=== PATIENT | female | born 1960 | race Caucasian/White ===

== ENCOUNTER → 2019-09-19 09:07 | Outpatient (CLI) | payer OTHER, SELFPAY ==
[2019-09-19 09:50] LABS: Erythrocyte Sedimentation Rate 28 mm/hr (0-30)
[2019-09-19 11:43] LABS: Alanine Aminotransferase 21 U/L (12-78); Albumin Level 3.6 gm/dL (3.4-5.0); Albumin/Globulin Ratio 1.1 (1.1-1.8); Alkaline Phosphatase 80 U/L (46-116); Anion Gap 16.3 mEq/L (5-15); Aspartate Amino Transferase 12 U/L (15-37); Bilirubin,Total 0.5 mg/dL (0.2-1.0); Blood Urea Nitrogen 14 mg/dL (7-18); C-Reactive Protein 0.8 mg/dL (0.0-0.9); Calcium 8.5 mg/dL (8.5-10.1); Carbon Dioxide 27 mmol/L (21.0-32.0); Chloride 103 mmol/L (98-107); Chol/HDL Ratio 5.7 (1-3.5); Cholesterol 290 mg/dL (140-200); Creatinine,Serum 0.88 mg/dL (0.55-1.02); Estimated Glomerular Filt Rate 66 ml/min (>60); GFR (African American) 80 ML/MIN (>60); Globulin 3.3 gm/dl (1.3-3.2); Glucose 245 mg/dL (74-106); HDL Cholesterol 51 mg/dL (29-89); LDL Cholesterol 182 mg/dL (0-130); Potassium 4.3 mmoL/L (3.5-5.1); Sodium 142 mmol/L (136-145); Total Protein,Serum 6.9 gm/dL (6.4-8.2); Triglycerides 283 mg/dL (30-200); VLDL Cholesterol 57 mg/dL (0-40)
[2019-09-19 13:16] LABS: Hemoglobin A1C 9.5 % (0.0-7.0)
[2019-09-20 10:20] LABS: Vitamin B12 1075 pg/mL (232-1245); Vitamin D 25 Hydroxy 13.4 ng/mL (30.0-100.0)
== END ==
PROVIDERS: Visit Provider Nurse Practitioner Family
DX: E11.41 Type 2 diabetes mellitus with diabetic mononeuropathy (principal); M25.50 Pain in unspecified joint; E53.8 Deficiency of other specified B group vitamins; E55.9 Vitamin D deficiency, unspecified
CPT/HCPCS: 36415; 80053; 80061; 82607; 82652; 83036; 85651; 86140

== ENCOUNTER → 2021-07-25 17:52 | Outpatient (CLI) | payer OTHER, SELFPAY ==
[2021-07-25 20:02] LABS: Alanine Aminotransferase 28 U/L (12-78); Albumin Level 3.9 g/dl (3.5-5.0); Albumin/Globulin Ratio 1.4 (1.1-1.8); Alkaline Phosphatase 120 U/L (38-126); Anion Gap 12.2 mEq/L (5-15); Aspartate Amino Transferase 59 U/L (14-36); Bilirubin,Total 0.6 mg/dl (0.2-1.3); Blood Urea Nitrogen 12 mg/dl (7-17); Calcium 8.8 mg/dl (8.4-10.2); Carbon Dioxide 32 mmol/L (22.0-30.0); Chloride 94 mmol/L (98-107); Chol/HDL Ratio 3.6 (1-3.5); Cholesterol 197 mg/dl (140-200); Estimated Glomerular Filt Rate 86 ml/min (>60); GFR (African American) 104 ML/MIN (>60); Globulin 2.8 g/dL (1.3-3.2); HDL Cholesterol 55 mg/dl (40-60); Potassium 4.2 mmoL/L (3.5-5.1); Sodium 134 mmol/L (136-145); Total Protein,Serum 6.7 g/dl (6.3-8.2); Triglycerides 238 mg/dl (30-150); VLDL Cholesterol 48 mg/dL (0-40)
[2021-07-25 20:05] LABS: Hemoglobin A1C > 14.0 % (4.0-6.0)
[2021-07-25 20:12] LABS: Direct LDL Cholesterol 107.29 mg/dL (100-129); Glucose 526 mg/dl (74-100)
[2021-07-25 20:49] LABS: Vitamin B12 886 pg/mL (239-931)
== END ==
PROVIDERS: Visit Provider Internal Medicine Adolescent Medicine
DX: E11.65 Type 2 diabetes mellitus with hyperglycemia (principal); E11.41 Type 2 diabetes mellitus with diabetic mononeuropathy
CPT/HCPCS: 80053; 80061; 82607; 83036

== ENCOUNTER → 2022-05-08 12:15 | Outpatient (CLI) | payer OTHER, SELFPAY ==
--- NOTE | 2022-05-08 12:22 | XR_ITS ---
FINAL REPORT CLINICAL HISTORY: pain FINDINGS: 3 views of the left foot were obtained. There is no acute fracture or dislocation. There are mild and moderate degenerative changes. Calcaneal spurs are present. The soft tissues are unremarkable. IMPRESSION: Mild and moderate degenerative changes. Reviewed, Interpreted and Dictated by Mayur Watson III, MD Transcribed by Pedro Chavez Authenticated and [facility]
--- NOTE | 2022-05-08 12:22 | XR_ITS ---
FINAL REPORT CLINICAL HISTORY: pain FINDINGS: RIGHT FOOT: Three views of the right foot were obtained. There is no acute fracture or dislocation. There are mild and moderate degenerative changes. There is a 7 mm linear foreign body in the plantar midfoot of the anterior heel pad. IMPRESSION: Mild and moderate degenerative changes. Foreign body in the plantar anterior heel pad. Reviewed, Interpreted and Dictated by Mayur Watson III, MD Transcribed by Pedro Chavez Authenticated and [facility]
--- NOTE | 2022-05-08 12:22 | XR_ITS ---
FINAL REPORT CLINICAL HISTORY: pain FINDINGS: RIGHT ANKLE: Three views of the right ankle were obtained. There is no acute fracture or dislocation. There are moderate degenerative changes. There is a 7 mm linear foreign body in the anterior heel pad. Calcaneal spurs are present. IMPRESSION: Linear foreign body in the anterior heel pad. Moderate degenerative change. Reviewed, Interpreted and Dictated by Mayur Watson III, MD Transcribed by Pedro Chavez Authenticated and [facility]
--- NOTE | 2022-05-08 12:22 | XR_ITS ---
FINAL REPORT CLINICAL HISTORY: pain FINDINGS: LEFT ANKLE: Three views of the left ankle were obtained. There is no acute fracture or dislocation. There are mild and moderate degenerative changes. Calcaneal spurs are present. There is no soft tissue abnormality. IMPRESSION: Mild and moderate degenerative changes. Reviewed, Interpreted and Dictated by Mayur Watson III, MD Transcribed by Pedro Chavez Authenticated and [facility]
== END ==
PROVIDERS: PCP Internal Medicine Adolescent Medicine; Visit Provider Podiatrist
DX: M25.571 Pain in right ankle and joints of right foot (principal); M25.572 Pain in left ankle and joints of left foot; M79.671 Pain in right foot; M79.672 Pain in left foot; Z51.89 Encounter for other specified aftercare
CPT/HCPCS: 73610; 73630

== ENCOUNTER → 2022-06-02 10:12 | Outpatient (CLI) | payer OTHER, SELFPAY ==
--- NOTE | 2022-06-02 10:15 | US_ITS ---
FINAL REPORT CLINICAL HISTORY: previous smoker, bilateral claudication, bilateral rest pain, HTN, hyperlipidemia, DM, numbness bilateral legs. FINDINGS: COMPLETE ANKLE/BRACHIAL INDICES BILATERAL Ankle brachial indices were obtained. The right CARLEEN is 1.1. The left CARLEEN is 1.1. IMPRESSION: ABIs are within normal limits bilaterally. Reviewed, Interpreted and Dictated by Caleb Aguila MD Transcribed by Mimi Andrade Authenticated and [facility]
== END ==
PROVIDERS: PCP Internal Medicine Adolescent Medicine; Visit Provider Podiatrist
DX: L97.519 Non-pressure chronic ulcer of other part of right foot with unspecified severity (principal)
CPT/HCPCS: 93923

== ENCOUNTER → 2022-06-06 06:55 | Outpatient (CLI) | payer OTHER, SELFPAY ==
--- NOTE | 2022-06-06 | CA_ITS ---
APPROVED REPORT Exam: Pharmacologic Technologist: Yulia Amaya Ht: 5 ft 2 in Wt: 193 lbs BSA: 1.88 m2 HR: 83 bpm BP: 150/87 mmHg Indications: Chest pain, Weakness Medical History Medications: Lisinopril,,,,, Gabapentin,,,,, Atorvastatin,,,,, DulOXETINE,,,,, LanTUS,,,,, NovOLOG,,,,, Sertraline,,,,, SeMaglutide,,,,, Stress Test Details Test: LEXISCAN HR Resting HR: 84 bpm Max Heart Rate (APMHR): 161.069121 bpm Max HR Achieved: 94 bpm Target HR (85% APMHR): 136.859189 bpm % of APMHR: 58.39 Recovery HR: 85 bpm BP Resting BP: 150.0/87.0 mmHg Max BP: 150.0/87.0 mmHg Recovery BP: 146.0/83.0 mmHg ECG Resting ECG: Normal sinus rhythm, low voltage QRS, cannot rule out old anteroseptal WA. Clinical Exercise duration: 04:00 min Highest Stage Achieved: Exercise capacity: 1.0 METs Stress ECG Conclusion Symptoms: Brief shortness of air and stomach tightness. No chest pain. Arrhythmias/Ectopy: Rare PAC and PVC. ST-T Changes: No significant changes. Conclusion: Unremarkable Lexiscan stress. Myoview images reported separately. Electronically signed by : Gabo Miner MD 06/07/2022 08:53:37
--- NOTE | 2022-06-06 07:00 | NM_ITS ---
APPROVED REPORT Exam: Nuclear Stress Test Indication: Chest pain, SOB, Fatigue, HTN, DM, High cholesterol, Family history Patient Location: Outpatient Stress Tech: Yulia Amaya [place] Tech:Dali Watt, ARRT, RT (R)(N) Ht: 5 ft 2 in Wt: 193 lbs Bra Size: C HR: 84 bpm BP: 150/87 mmHg BSA: 1.88 m2 TID: 1.38 BMI: 35.2 History: Chest pain, SOB, Fatigue, HTN, DM, High cholesterol, Family history Procedure: Patient received a 0.4 mg of intravenous Lexiscan, resting heart rate 94 bpm, resting blood pressure 150/87 mmHg, with Lexiscan maximum heart rate achived was 94 bpm which is Less than 85 % of the maximum predicted heart rate and blood pressure was 150/87 mmHg. With Lexiscan, patient denied any complaint of chest pain. Electrocardiogram Resting electrocardiogram shows sinus rhythm, with Lexiscan there is less than 1.[address] segment depression noted from the baseline EKG. The EKG portion of the Lexiscan is nondiagnostic. Cardiac Stress and Resting SPECT Images: Cardiac Stress and Resting SPECT images were obtained using technetium 99m Myoview 31.2 mCi stress and 9.79 mCi at rest. Gated SPECT for analysis of segmental wall motion and calculation of the ejection fraction also done. Prone images were also obtained. Cardiac stress and rest SPECT images show a large area of reversible ischemia involving the anterior, anterior apical and anteroseptal wall, there is transient ischemic dilatation of the left ventricle seen. Computer derived ejection fraction is 57% with no obvious regional wall motion abnormality, right ventricle is normal size and contractility. Conclusion: 1. The EKG portion of the Lexiscan is nondiagnostic. 2. Scintigraphic evidence of a large area of reversible ischemia involving the anterior, anterior apical apex and anteroseptal wall with transient ischemic dilatation of the left ventricle. Computer derived ejection fraction 57% with no regional wall motion abnormality, right ventricle is normal size and contractility. 3. Abnormal Lexiscan Myoview study. Electronically signed by : Gabo Miner MD 06/07/2022 09:01:01
--- NOTE | 2022-06-06 08:36 | HMH.ITSHM ---
Current Home Medications as stated by this patient Moira Nicholas or inside technical sales representative. []SERTRALINE SEMAGLUTIDE LISINOPRIL INSULIN GABAPENTIN DULOXETINE ATORVASTATIN
== END ==
PROVIDERS: PCP Internal Medicine Adolescent Medicine; Visit Provider Internal Medicine Adolescent Medicine
DX: R07.9 Chest pain, unspecified (principal); R53.1 Weakness
CPT/HCPCS: 78452; 93017; A9502; J2785

== ENCOUNTER → 2022-06-20 10:13 | Outpatient (CLI) | payer OTHER, SELFPAY ==
[2022-06-20 11:03] LABS: Basophils # 0.2 K/mm3 (0-0.2); Basophils % 1.7 % (0.1-2.0); Eosinophils # 0.3 K/mm3 (0.0-0.4); Eosinophils % 3.1 % (0.1-12.0); Hematocrit 42.4 % (37.0-47.0); Hemoglobin 13.8 g/dL (12.2-16.2); Lymphocytes # 3.5 K/mm3 (0.7-4.5); Lymphocytes % 39.7 % (10-50); Mean Corpuscular HGB Conc 32.5 g/dL (31.8-35.4); Mean Corpuscular Hemoglobin 29.7 pg (27.0-31.2); Mean Corpuscular Volume 91.3 fl (81-99); Mean Platelet Volume 8.5 fl (7.4-10.4); Monocytes # 0.5 K/mm3 (0.1-1.0); Monocytes % 5.2 % (1.7-9.3); Neutrophils # 4.4 K/mm3 (1.8-7.8); Neutrophils % 50.4 % (37.0-80.0); Platelet Count 177 K/mm3 (142-424); Red Blood Count 4.65 M/mm3 (4.20-5.40); Red Cell Distribution Width 13.7 % (11.5-17.5); White Blood Count 8.7 K/mm3 (4.8-10.8)
[2022-06-20 11:27] LABS: Anion Gap 15.1 mEq/L (5-15); Blood Urea Nitrogen 29 mg/dl (7-17); Calcium 9.1 mg/dl (8.4-10.2); Carbon Dioxide 31 mmol/L (22.0-30.0); Chloride 98 mmol/L (98-107); Estimated Glomerular Filt Rate 64 ml/min (>60); GFR (African American) 78 ML/MIN (>60); Glucose 219 mg/dl (74-100); Potassium 5.1 mmoL/L (3.5-5.1); Sodium 139 mmol/L (136-145)
== END ==
PROVIDERS: PCP Internal Medicine Adolescent Medicine; Visit Provider Internal Medicine Cardiovascular Disease
DX: R06.00 Dyspnea, unspecified (principal); Z01.812 Encounter for preprocedural laboratory examination; Z20.822 Contact with and (suspected) exposure to COVID-19; I20.8 Other forms of angina pectoris; I10 Essential (primary) hypertension; E11.9 Type 2 diabetes mellitus without complications; R94.39 Abnormal result of other cardiovascular function study; I63.9 Cerebral infarction, unspecified; Z78.9 Other specified health status
CPT/HCPCS: 36415; 80048; 85025; C9803; U0003; U0005

== ENCOUNTER 2022-06-21 08:35 | Day surgery (SDC) | payer OTHER, SELFPAY ==
[2022-06-21] VITALS (13 sets, daily range): BP systolic 88–106; BP diastolic 51–70; PULSE 65–75; RESP 18; TEMP 36.9; O2SAT 94–99; BMI 34.9
--- NOTE | 2022-06-21 07:03 | IR_ITS ---
APPROVED REPORT Patient Location: Outpatient Sawsmith: GAVIN Cordero RT (R) PROCEDURES Left heart catheterization Left ventriculogram Selective coronary angiogram INDICATION High risk abnormal Myoview, Angina pectoris Informed consent was obtained prior to the procedure. COMPLICATIONS NONE Estimated Blood Loss: LESS THAN 10 ML TECHNIQUE One percent lidocaine used to anesthetize the right anterior aspect of the wrist. The right radial artery was accessed via the Seldinger technique. A 6 Turkmen sheath was placed in the right radial artery. 2.5 mg of verapamil, 800 mcg of nitroglycerin, 1mg Lidocaine and 5000 U Heparin were given through the arterial sheath. The papa catheter was also used to perform left heart catheterization, left ventriculogram and selective coronary angiogram. At the end of the procedure the sheath was removed good hemostasis was achieved using Traclet band, patient was transferred to the postop holding area in stable condition. ANGIOGRAPHIC RESULTS The left main artery Normal The left anterior descending artery Ostially occluded and fills via left to left and right to left collaterals from the circumflex artery and right coronary artery The circumflex artery Is a large dominant vessel and has an ostial 30% followed by proximal 30% stenosis. Second obtuse marginal artery has a proximal 90% stenosis while the third obtuse marginal artery has a proximal and mid vessel 80% stenosis. Both second and third obtuse marginal arteries are moderate in size The right coronary artery Is nondominant and has proximal and mid vessel 90% stenoses. The distal vessel does collateralized the LAD via septal perforators The LUNDBERG ventriculogram reveals Preserved 60% The left ventricular end-diastolic pressure 25 mmHg IMPRESSION Severe to critical three-vessel coronary disease as described above most notably with a chronically occluded LAD which fills via left to left and right to left collaterals Preserved ejection fraction Moderately elevated LVEDP PLAN 1. Continue aspirin 81 mg daily 2. LDL goal less than 55 to be achieved with high intensity statin 3. Patient will be referred to [facility] for coronary bypass grafting 4. Aggressive risk factor modification Electronically signed by : Dion Urrutia MD 06/21/2022 13:50:48
--- NOTE | 2022-06-21 09:14 | CA_ITS ---
APPROVED REPORT EXAM: Comprehensive 2D, Doppler, and color-flow Echocardiogram Record Pressman: Thania García RT(R) Ht: 5 ft 2 in Wt: 190lbs BSA: 1.87 BP: 139/92 mmHg Indications: angina, CP, ex smoker, fatigue, edema, HTN, DM, SOB, obesity. 2D Dimensions LVOT 1.84 cm (M/F) 1.5-2.5 M-Mode Dimensions RVDd 1.57 cm (0.9-2.6) LA Diam 2.94 cm (1.9-4.0) LVDd 2.18 cm (3.5-5.7) Ao Diam 2.94 cm (2.0-3.7) LVDs 1.57 cm (3.5-5.7) IVSd 0.75 cm (0.6-1.1) PWd 0.93 cm (0.6-1.1) EF (Teich) 57.00% FS 28.00% EDV (Teich) 15.80 mL ESV (Teich) 6.80 mL LV Diastology E Decel Time 207.00 (160-240 msec) E/A Ratio 1.0 MED E' 5.70 (< 7 cm/sec) E'/MED E' Ratio 12.53 (>14) LAT E' 8.40 (<10 cm/sec) E/LAT E' Ratio 8.50 (>14) Mitral Valve MV E Max Jason. 71.00 (40-130 cm/s) MV A Velocity 73.00 (40-130 cm/s) E/A Ratio 0.98 MV Decel. Time 207.00 (160-240 ms) MV PHT 61.00 ms Left Ventricle Left atrium is mildly enlarged, left ventricle is normal size, mild concentric left ventricular hypertrophy, estimated ejection fraction 55% with no regional wall motion abnormality, diastolic parameters are inconclusive. Right Ventricle Right atrium and right ventricle are normal size and contractility. Aortic Valve Aortic valve is minimally thickened and fibrosed there is no aortic stenosis or aortic insufficiency. Mitral Valve Mitral valve grossly normal, there is trace mitral regurgitation. Tricuspid Valve Tricuspid grossly normal, there is trace tricuspid regurgitation, tricuspid regurgitation jet velocity is inadequate for calculation of the right ventricular systolic pressure. Pulmonic Valve Pulmonic valve is poorly visualized. Great Vessels Aortic root is normal size. Inferior vena cava is poorly visualized. Pericardium No significant pericardial effusion noted. Conclusion 1. Mildly enlarged atrium, normal left ventricular size, mild concentric left ventricular hypertrophy, estimated ejection fraction 55% with no regional wall motion abnormality, diastolic parameters are inconclusive. 2. Trace mitral and tricuspid regurgitation. 3. No significant pericardial effusion 4. Inferior vena cava is poorly visualized. Electronically signed by : Gabo Miner MD 06/21/2022 21:14:04
== END 2022-06-21 14:06 | disposition home or self-care (01) ==
LOC: CATHLAB 08:37
PROVIDERS: PCP Internal Medicine Adolescent Medicine; Visit Provider Internal Medicine
DX: I25.118 Atherosclerotic heart disease of native coronary artery with other forms of angina pectoris (principal); I25.82 Chronic total occlusion of coronary artery; E11.9 Type 2 diabetes mellitus without complications; I10 Essential (primary) hypertension; R06.00 Dyspnea, unspecified; Z79.4 Long term (current) use of insulin; Z87.891 Personal history of nicotine dependence; Z79.899 Other long term (current) drug therapy
CPT/HCPCS: 93306; 93458; 99152; C1725; C1769; J1644; Q9967

== ENCOUNTER → 2022-07-08 09:19 | Outpatient (CLI) | payer OTHER, SELFPAY | PROVIDERS: PCP Internal Medicine Adolescent Medicine; Visit Provider Thoracic Surgery (Cardiothoracic Vascular Surgery) | DX: Z20.822 Contact with and (suspected) exposure to COVID-19 (principal); I25.10 Atherosclerotic heart disease of native coronary artery without angina pectoris | CPT/HCPCS: C9803; U0003; U0005 ==

== ENCOUNTER → 2022-08-17 10:48 | Outpatient (CLI) | payer OTHER, SELFPAY ==
--- NOTE | 2022-08-17 11:02 | XR_ITS ---
FINAL REPORT CLINICAL HISTORY: LEFT SIDED CHEST WALL PAIN FINDINGS: 3 views of the left ribs were obtained. There are no rib fractures. There is no pleural fluid collection or pneumothorax. A single view of the chest demonstrates no acute cardiopulmonary process. There are multiple median sternotomy wires. IMPRESSION: Unremarkable left rib series. Reviewed, Interpreted and Dictated by Caleb Aguila MD Transcribed by Pedro Chavez Authenticated and [facility]
== END ==
PROVIDERS: PCP Nurse Practitioner Family; Visit Provider Nurse Practitioner Family
DX: R07.89 Other chest pain (principal)
CPT/HCPCS: 71101

== ENCOUNTER → 2022-10-09 12:54 | Outpatient (CLI) | payer OTHER, SELFPAY ==
--- NOTE | 2022-10-09 12:57 | CA_ITS ---
APPROVED REPORT EXAM: Comprehensive 2D, Doppler, and color-flow Echocardiogram Drug Clerk: Jadyn Roman, RCS, RVS Ht: 5 ft 2 in Wt: 181lbs BSA: 1.83 BP: 147/91 mmHg Indications: CAD S/p CBGx3-07/2022, exsmoker, HTN, DM 2D Dimensions IVSd 1.18 cm LA Volume 20.50 mL Aortic Root 2.84 cm LA Volume Index 10.90 mL/m2 (M/F) 16-34 Left Atrium 2.26 cm LVOT 1.87 cm (M/F) 1.5-2.5 M-Mode Dimensions RVDd 1.86 cm (0.9-2.6) LA Diam 2.61 cm (1.9-4.0) LVDd 3.50 cm (3.5-5.7) Ao Diam 2.91 cm (2.0-3.7) LVDs 2.25 cm (3.5-5.7) IVSd 1.29 cm (0.6-1.1) PWd 1.04 cm (0.6-1.1) EF (Teich) 66.40% FS 35.70% EDV (Teich) 50.90 mL TAPSE 0.94 (<1.7) ESV (Teich) 17.10 mL LV Diastology E Decel Time 133.00 (160-240 msec) E/A Ratio 0.78 MED E' 6.80 (< 7 cm/sec) MED A' 7.40 cm/s E'/MED E' Ratio 8.44 (>14) LAT E' 5.40 (<10 cm/sec) LAT A' 7.90 cm/s E/LAT E' Ratio 10.63 (>14) Aortic Valve LVOT Max 107.00 (70-110 cm/s) LVOT VTI 22.22 cm AoV Peak Jason. 127.00 (50-130 cm/s) AO Peak GR. 6.40 mmHg AO Mean GR. 3.20 (<5 mmHg) AO VTI 24.20 (18-25 cm) SANDRA (VTI) 2.52 (2.5-4.5 cm2) Mitral Valve MV A Velocity 73.00 (40-130 cm/s) E/A Ratio 0.78 MV Decel. Time 133.00 (160-240 ms) Pulmonary Valve PV Peak Velocity 93.00 (50-150 cm/s) Tricuspid Valve TR P. Velocity 236.00 cm/s RAP Estimate 10.00 mmHg RVSP 32.20 mmHg Left Ventricle Left atrium is mildly enlarged the left ventricle is normal size mild concentric left ventricular hypertrophy, estimated ejection fraction 55% with no regional wall motion abnormality, grade 1 diastolic dysfunction seen without tissue Doppler evidence of raise left atrial pressure. Right Ventricle Right atrium and right ventricle are normal size and contractility. Aortic Valve Aortic valve is minimally thickened and fibrosed there is no aortic stenosis or aortic insufficiency. Mitral Valve Mitral valve is grossly normal, there is trace mitral regurgitation. Tricuspid Valve Tricuspid valve grossly normal, there is trace tricuspid regurgitation, tricuspid regurgitation jet velocity is inadequate for calculation of the right ventricular systolic pressure. Pulmonic Valve Pulmonic valve is poorly visualized. Great Vessels Aortic root is normal size. Inferior vena cava is normal size with normal inspiratory collapse. Pericardium No significant pericardial effusion noted. Conclusion 1. Mildly enlarged left atrium, normal left ventricular size, mild concentric left ventricular hypertrophy, estimated ejection fraction 55% with no regional wall motion abnormality, grade 1 diastolic dysfunction seen without tissue Doppler evidence of raise left atrial pressure. 2. Trace mitral and tricuspid regurgitation. 3. No significant pericardial effusion noted. 4. Inferior vena cava is normal size with normal inspiratory collapse. Electronically signed by : Gabo Miner MD 10/10/2022 06:29:57
== END ==
PROVIDERS: PCP Nurse Practitioner Family; Visit Provider Nurse Practitioner Family
DX: I20.8 Other forms of angina pectoris (principal); I10 Essential (primary) hypertension; E11.9 Type 2 diabetes mellitus without complications; R94.31 Abnormal electrocardiogram [ECG] [EKG]; Z95.1 Presence of aortocoronary bypass graft; Z79.4 Long term (current) use of insulin
CPT/HCPCS: 93306

== ENCOUNTER 2023-02-26 11:47 | Emergency (ER) | payer OTHER, SELFPAY ==
[2023-02-26 12:10] VITALS: BP 102/70; PULSE 83; RESP 18; TEMP 36.8; O2SAT 97; BMI 32.4
--- NOTE | 2023-02-26 12:50 | EXP.UTC ---
Discharge Plan Disposition Patient Disposition: Home, Self-Care Condition: Good Prescriptions Prescriptions: New triamcinolone acetonide 0.5 % cream 1 applic topical TID Qty: 30 0RF Rx Instructions: apply to rash on chest and arm No Action gabapentin 800 mg tablet 800 mg PO QID duloxetine 60 mg capsule,delayed release(DR/EC) 60 mg PO DAILY Label Comments: TAKE 1 CAPSULE BY MOUTH ONCE DAILY atorvastatin 40 mg tablet 40 mg PO DAILY insulin glargine [Lantus Solostar U-100 Insulin] 100 unit/mL (3 mL) insulin pen 65 unit SQ HS Ozempic 0.25 mg or 0.5 mg(2 mg/1.5 mL) pen injector 1 mg SQ WEEKLY Label Comments: INJECT 1/2 (ONE-HALF) MG UNDER THE SKIN ONCE A WEEK FOR 30 DAYS insulin aspart U-100 [Novolog FlexPen U-100 Insulin] 100 unit/mL (3 mL) insulin pen 25 unit SQ TID Label Comments: INJECT 15 UNITS SUBCUTANEOUSLY WITH MEALS UP TO THREE TIMES DAILY sertraline 100 mg tablet 100 mg PO BID Ozempic 1 mg/dose (4 mg/3 mL) pen injector 1 mg SQ WEEKLY metoprolol tartrate 25 mg tablet 25 mg PO BID Label Comments: TAKE 1 TABLET BY MOUTH TWICE DAILY isosorbide mononitrate 30 mg tablet extended release 24 hr 30 mg PO DAILY Qty: 30 5RF methocarbamol 500 mg tablet See Rx Instructions .ROUTE .COMPLEX Qty: 60 0RF Dose Instruction: TAKE 1 TABLET BY MOUTH TWICE DAILY NEEDED FOR CHEST PAIN Rx Instructions: TAKE 1 TABLET BY MOUTH TWICE DAILY NEEDED FOR CHEST PAIN aspirin [Adult Aspirin Regimen] 81 mg tablet,delayed release (DR/EC) 81 mg PO DAILY Referrals Follow up/Referrals: Bernard Todd MD [Primary Care Provider] - See instructions Activity Restrictions/Add. Instructions Additional Instructions/Restrictions: Make sure to look around and see if the pillow you slept on was washed in the correct laundry detergent Follow up with your Family Doctor if no improvement or any worsening of symptoms Do not use steriod cream on your face Over the counter benadryl may help with itching Oatmeat bathes may help with itching and drying of rash Clinical Impressions Clinical Impression: Rash and nonspecific skin eruption Instructions Patient Instructions: DI for Hives, DI for Rash Discharge ED Provider: Marisa Shafer [facility] HPI General Stated complaint: Rash all over body Mode of Arrival: Ambulatory Source of Information: Patient Limitations: No Limitations Time Seen by Provider: 02/26/23 12:50 Description of Symptoms (Recalled from Triage Doc. by RN): PATIENT C/O RASH ALL OVER BODY X 1 WEEK HEENT Symptoms (Recalled from RN notes): No Resp Symptoms (Recalled from RN notes): No Skin Symptoms (Recalled from RN notes): Yes MS Symptoms (Recalled from RN notes): No Functional Status (Recalled from RN notes): WNL History of Present Illness Provider Complaint: Patient states that she has been having rash on the right side of her neck and chest area for about a week that is itchy States that she hasnt changed anything that she is aware of but has been sleeping with a new pillow not sure if thaty may have caused it states that she is a diabetic and has take OTC benadryl last night but not helped much so today she came in to get it checked Related Data Home Medications Medication Instructions Recorded Confirmed atorvastatin 40 mg tablet 40 mg PO DAILY . 05/09/22 02/26/23 duloxetine 60 mg capsule,delayed 60 mg PO DAILY . 05/09/22 02/26/23 release gabapentin 800 mg tablet 800 mg PO QID . 05/09/22 02/26/23 insulin aspart U-100 100 unit/mL 25 unit SQ TID . 06/09/22 02/26/23 (3 mL) subcutaneous pen (Novolog FlexPen U-100 Insulin aspart) insulin glargine 100 unit/mL (3 65 unit SQ HS . 06/09/22 02/26/23 mL) subcutaneous pen (Lantus Solostar U-100 Insulin) semaglutide 0.25 mg or 0.5 mg (2 1 mg SQ WEEKLY . 06/09/22 02/26/23 mg/1.5 mL) subcutaneous pen injector (Ozempic) aspirin 81 mg tablet,delay
[2023-02-26 13:00] VITALS: BP 118/82
[2023-02-26 13:15] VITALS: BP 118/82; PULSE 83; RESP 18; TEMP 36.8; O2SAT 97
== END 2023-02-26 13:28 | disposition home or self-care (01) ==
PROVIDERS: Emergency Provider Nurse Practitioner; PCP Internal Medicine Adolescent Medicine
DX: R21 Rash and other nonspecific skin eruption (principal); E11.9 Type 2 diabetes mellitus without complications; I10 Essential (primary) hypertension; E78.5 Hyperlipidemia, unspecified; Z79.4 Long term (current) use of insulin; Z87.891 Personal history of nicotine dependence
CPT/HCPCS: 96372; 99204; 99212; G0463

== ENCOUNTER 2023-03-29 18:13 | Emergency (ER) | payer OTHER, SELFPAY ==
--- NOTE | 2023-03-29 18:17 | XR_ITS ---
PROCEDURE INFORMATION: Exam: XR Right Foot Exam date and time: 03/29/2023 6:14 PM Age: 62 years old Clinical indication: Injury or trauma; Blunt trauma; Patient HX: foot pain due to fall, most of pain is in toes. Patient is a diabetic with neuropathy. States she falls frequently. TECHNIQUE: Imaging protocol: Radiologic exam of the right foot. Views: 3 or more views. COMPARISON: CR XR FOOT WT BEARING RT 3V 05/08/2022 12:31 PM FINDINGS: Bones/joints: Bones appear mildly demineralized. No acute appearing fracture or dislocation, compared with 05/08/2022. Chronic deformity/degenerative changes of the bases of 1st, 2nd, and 4th proximal phalanges. Chronic ovoid ossicle at the lateral margin of the 1st metatarsophalangeal joint. Chronic fractured sesamoid bone abutting the head of the 5th metatarsal bone, unchanged since the prior study. Accessory type 2 navicular ossicle. Minimal degenerative spurs of medial and lateral malleoli. Large plantar and Achilles calcaneal spurs. Mild degenerative spurs in the midfoot best seen on the lateral view. No lytic lesions or findings of osteomyelitis. Soft tissues: Soft tissue swelling in the foot. There is a chronic broken needle fragment or other metallic foreign body of 5 mm length lodged in the soft tissues at the plantar aspect of the midfoot, most clearly seen on oblique series 2, and lateral series 3, present since the prior exam. There is a triangular 4 cm density at the plantar/superficial aspect of the great toe seen on the lateral view, which could be foreign debris within or on the soft tissues, correlate clinically. No soft tissue emphysema. Chronic calcifications in the distal Achilles tendon insertion. IMPRESSION: 1. No acute fracture or dislocation. 2. Chronic degenerative and old posttraumatic changes as detailed above. 3. Chronic 5 mm broken needle fragment or other metallic foreign body in the plantar soft tissues at the midfoot. 4. 4 mm triangular density at the plantar aspect of the great toe which could be foreign debris within or on the soft tissues, correlate clinically, this is not clearly seen on the prior study. 5. Additional nonemergency and chronic findings as above.
--- NOTE | 2023-03-29 18:22 | EXP.UTC ---
Discharge Plan Disposition Patient Disposition: Home, Self-Care Condition: Good Prescriptions Prescriptions: New sulfamethoxazole-trimethoprim [Bactrim DS] 800-160 mg Tablet 1 tab PO BID Qty: 20 0RF cephalexin 500 mg capsule 500 mg PO QID Qty: 40 0RF mupirocin 2 % ointment 1 applic topical TID 7 Days Qty: 15 0RF No Action gabapentin 800 mg tablet 800 mg PO QID duloxetine 60 mg capsule,delayed release(DR/EC) 60 mg PO DAILY Label Comments: TAKE 1 CAPSULE BY MOUTH ONCE DAILY atorvastatin 40 mg tablet 40 mg PO DAILY insulin glargine [Lantus Solostar U-100 Insulin] 100 unit/mL (3 mL) insulin pen 65 unit SQ HS Ozempic 0.25 mg or 0.5 mg(2 mg/1.5 mL) pen injector 1 mg SQ WEEKLY Label Comments: INJECT 1/2 (ONE-HALF) MG UNDER THE SKIN ONCE A WEEK FOR 30 DAYS insulin aspart U-100 [Novolog FlexPen U-100 Insulin] 100 unit/mL (3 mL) insulin pen 25 unit SQ TID Label Comments: INJECT 15 UNITS SUBCUTANEOUSLY WITH MEALS UP TO THREE TIMES DAILY sertraline 100 mg tablet 100 mg PO BID Ozempic 1 mg/dose (4 mg/3 mL) pen injector 1 mg SQ WEEKLY metoprolol tartrate 25 mg tablet 25 mg PO BID Label Comments: TAKE 1 TABLET BY MOUTH TWICE DAILY isosorbide mononitrate 30 mg tablet extended release 24 hr 30 mg PO DAILY Qty: 30 5RF methocarbamol 500 mg tablet See Rx Instructions .ROUTE .COMPLEX Qty: 60 0RF Dose Instruction: TAKE 1 TABLET BY MOUTH TWICE DAILY NEEDED FOR CHEST PAIN Rx Instructions: TAKE 1 TABLET BY MOUTH TWICE DAILY NEEDED FOR CHEST PAIN triamcinolone acetonide 0.5 % cream 1 applic topical TID Qty: 30 0RF Rx Instructions: apply to rash on chest and arm aspirin [Adult Aspirin Regimen] 81 mg tablet,delayed release (DR/EC) 81 mg PO DAILY Referrals Follow up/Referrals: Bernard Todd MD [Primary Care Provider] - See instructions Activity Restrictions/Add. Instructions Additional Instructions/Restrictions: Keep the wound clean and dry. Watch the wound for signs of infection, such as redness, swelling, drainage, fever. etc. Take tylenol or ibuprofen for pain. Follow up with your regular doctor. YOU HAVE TO BE SEEN BY DR. BEE FOR THIS. THERE COULD STILL BE A FORIEGN BODY IN YOUR TOE. THIS NEEDS TO BE EVALUATED BY DR. BEE SOON. IF YOU HAVEN'T HEARD FROM DR. BEE'S OFFICE BY 12:00 PM TOMORROW, PLEASE CALL HERE OR THE [facility] TO GET AN APPOINTMENT. GO TO THE ER FOR ANY WORSENING SYMPTOMS OR CONCERNS. Clinical Impressions Clinical Impression: Cellulitis of foot, right, Diabetes, Wound of right foot Instructions Patient Instructions: Cellulitis Discharge ED Provider: Aries L[facility]pez [facility] General Stated complaint: AO fell 03/22,RT foot pain Time Seen by Provider: 03/29/23 18:21 History of Present Illness Provider Complaint: She states that 7 days ago she fell down her basement steps. Since the she has had right foot pain and redness. She is a known diabetic. Related Data Home Medications Medication Instructions Recorded Confirmed atorvastatin 40 mg tablet 40 mg PO DAILY . 05/09/22 02/26/23 duloxetine 60 mg capsule,delayed 60 mg PO DAILY . 05/09/22 02/26/23 release gabapentin 800 mg tablet 800 mg PO QID . 05/09/22 02/26/23 insulin aspart U-100 100 unit/mL 25 unit SQ TID . 06/09/22 02/26/23 (3 mL) subcutaneous pen (Novolog FlexPen U-100 Insulin aspart) insulin glargine 100 unit/mL (3 65 unit SQ HS . 06/09/22 02/26/23 mL) subcutaneous pen (Lantus Solostar U-100 Insulin) semaglutide 0.25 mg or 0.5 mg (2 1 mg SQ WEEKLY . 06/09/22 02/26/23 mg/1.5 mL) subcutaneous pen injector (Ozempic) aspirin 81 mg tablet,delayed 81 mg PO DAILY . 06/21/22 02/26/23 release (Adult Aspirin Regimen) metoprolol tartrate 25 mg tablet 25 mg PO BID 08/17/22 02/26/23 sertraline 100 mg tablet 100 mg PO BID . 11/20/22 02/26/23 semaglutide 1 m
[2023-03-29 18:25] VITALS: BP 175/87; PULSE 83; RESP 18; TEMP 36.6; O2SAT 99; BMI 32.5
[2023-03-29 19:17] VITALS: BP 175/87; PULSE 83; RESP 18; TEMP 36.6; O2SAT 99
== END 2023-03-29 19:40 | disposition home or self-care (01) ==
PROVIDERS: Emergency Provider Nurse Practitioner Family; PCP Internal Medicine Adolescent Medicine
DX: S91.301A Unspecified open wound, right foot, initial encounter (principal); L03.115 Cellulitis of right lower limb; B96.89 Other specified bacterial agents as the cause of diseases classified elsewhere; E11.9 Type 2 diabetes mellitus without complications; I11.9 Hypertensive heart disease without heart failure; I25.10 Atherosclerotic heart disease of native coronary artery without angina pectoris; E78.5 Hyperlipidemia, unspecified; F41.9 Anxiety disorder, unspecified; Z87.891 Personal history of nicotine dependence; W10.8XXA Fall (on) (from) other stairs and steps, initial encounter; Z79.4 Long term (current) use of insulin
CPT/HCPCS: 73630; 87070; 87077; 87205; 96372; 99212; 99214; G0463; J0696

== ENCOUNTER → 2023-06-29 10:56 | Outpatient (CLI) | payer OTHER, SELFPAY ==
[2023-06-29 11:58] LABS: Basophils # 0.1 K/mm3 (0-0.2); Basophils % 0.8 % (0.1-2.0); Eosinophils # 0.2 K/mm3 (0.0-0.4); Eosinophils % 2.3 % (0.1-12.0); Hemoglobin 13.3 g/dL (12.2-16.2); Lymphocytes # 3.1 K/mm3 (0.7-4.5); Lymphocytes % 42.2 % (10-50); Mean Corpuscular HGB Conc 32.5 g/dL (31.8-35.4); Mean Corpuscular Hemoglobin 27.6 pg (27.0-31.2); Mean Platelet Volume 8.2 fl (7.4-10.4); Monocytes # 0.2 K/mm3 (0.1-1.0); Monocytes % 3.3 % (1.7-9.3); Neutrophils # 3.8 K/mm3 (1.8-7.8); Neutrophils % 51.4 % (37.0-80.0); Platelet Count 161 K/mm3 (142-424); Red Blood Count 4.82 M/mm3 (4.20-5.40); White Blood Count 7.3 K/mm3 (4.8-10.8)
[2023-06-29 12:50] LABS: Alanine Aminotransferase 37 U/L (12-78); Albumin Level 4.2 g/dl (3.5-5.0); Albumin/Globulin Ratio 1.2 (1.1-1.8); Alkaline Phosphatase 107 U/L (38-126); Aspartate Amino Transferase 52 U/L (14-36); Bilirubin,Total 0.5 mg/dl (0.2-1.3); Blood Urea Nitrogen 17 mg/dl (7-17); Calcium 9.4 mg/dl (8.4-10.2); Carbon Dioxide 31 mmol/L (22.0-30.0); Chloride 99 mmol/L (98-107); Chol/HDL Ratio 6.9 (1-3.5); Cholesterol 290 mg/dl (140-200); Estimated Glomerular Filt Rate 73 ml/min (>60); GFR (African American) 89 ML/MIN (>60); Globulin 3.4 g/dL (1.3-3.2); Glucose 157 mg/dl (74-100); HDL Cholesterol 42 mg/dl (40-60); Sodium 139 mmol/L (136-145); Total Protein,Serum 7.6 g/dl (6.3-8.2)
[2023-06-29 13:04] LABS: Triglycerides 416 mg/dl (30-150)
[2023-06-29 13:07] LABS: 25-OH Vitamin D, Total 17.7 ng/mL (30-100)
[2023-06-29 13:20] LABS: Thyroid Stimulating Hormone 1.27 uIU/mL (0.465-4.68)
[2023-06-29 13:39] LABS: Vitamin B12 752 pg/mL (239-931)
[2023-06-30 11:40] LABS: Hemoglobin A1C 8.1 % (4.0-6.0)
== END ==
PROVIDERS: Internal Medicine Adolescent Medicine; PCP Nurse Practitioner Family; Visit Provider Nurse Practitioner Family
DX: Z00.00 Encounter for general adult medical examination without abnormal findings (principal); R53.83 Other fatigue; E53.8 Deficiency of other specified B group vitamins; E55.9 Vitamin D deficiency, unspecified; E11.65 Type 2 diabetes mellitus with hyperglycemia; Z79.4 Long term (current) use of insulin
CPT/HCPCS: 36415; 80053; 80061; 82306; 82607; 83036; 84443; 85025

== ENCOUNTER 2024-08-19 14:08 | Outpatient (CLI) | payer MEDICARE, SELFPAY ==
--- NOTE | 2024-08-19 14:20 | CA_ITS ---
APPROVED REPORT EXAM: Comprehensive 2D, Doppler, and color-flow Echocardiogram Skein Winder: Thania García RT(R) Ht: 5 ft 2 in Wt: 167lbs BSA: 1.77 BP: 119/77 mmHg Indications: murmur, edema, ex smoker, HTN, DM, hyperlipidemia, CABG x 3 2021, Abn EKG, hyperlipidemia 2D Dimensions LVEF (Boogie's) 65.50 % F: 54 - 74 LV Volume 59.20 mL F: 46 - 106 LV Volume Index 33.4 mL/m2 F: 29 - 61 EF AP4 68.20 % EF AP2 57.1 % EF BP 65.5 % GL Strain -21.6 % M-Mode Dimensions RVDd 2.54 cm (0.9-2.6) LA Diam 2.94 cm (1.9-4.0) LVDd 2.22 cm (3.5-5.7) LVDs 1.50 cm (3.5-5.7) IVSd 0.97 cm (0.6-1.1) PWd 1.00 cm (0.6-1.1) EF (Teich) 63.30% FS 32.40% EDV (Teich) 16.60 mL ESV (Teich) 6.10 mL LV Diastology E Decel Time 150 (160-240 msec) E/A Ratio 0.9 Mitral Valve MV E Max Jason. 88.0 (40-130 cm/s) MV A Velocity 96.0 (40-130 cm/s) E/A Ratio 0.92 MV PHT 44.0 ms Left Ventricle The left ventricle is normal size. The left ventricular systolic function is hyperdynamic. There is marked increase in LV wall thickness. IVSD is 1.4 cm. Intracavitary gradient is present. There is no evidence of LVOT obstruction at rest. There is hyperdynamic LV segmental wall motion. Transmitral Doppler flow pattern suggests impaired LV relaxation. LVEF is 70%. Right Ventricle The right ventricle is normal size. The right ventricular systolic function is normal. Atria The left atrium size is normal. The right atrium size is normal. There is no Doppler evidence of interatrial shunt. Aortic Valve The aortic valve is mildly thickened. There is no aortic valvular stenosis. No aortic regurgitation is present. Mitral Valve The mitral valve is normal in structure. No evidence of mitral valve stenosis. Trace mitral regurgitation. Tricuspid Valve Tricuspid valve is grossly normal in structure and function. Trace tricuspid regurgitation. There is insufficient TR jet to estimate RVSP. Pulmonic Valve The pulmonary valve is normal in structure. Trace pulmonic regurgitation. Great Vessels The aortic root is normal in size. The ascending aorta is normal in size. IVC is normal in size and collapses >50% with inspiration. Pericardium There is no pericardial effusion. Other Information Study Quality: Fair Conclusion Hyperdynamic LV systolic function (LVEF 70%). Marked increase in LV wall thickness. IVSD 1.4 cm. Intracavitary gradient is present. No evidence of LVOT obstruction at rest. No significant valvular stenosis or regurgitation. In the setting of marked increase of wall thickness, presence of intracavitary gradient, and low voltage on ECG, further evaluation for infiltrative cardiomyopathy is suggested with cardiac MRI (amyloidosis protocol), PYP nuclear scan, and amyloidosis lab testing. Electronically signed by : Tiara Bustos MD 08/22/2024 00:06:42
== END 2024-08-19 23:59 | disposition home or self-care (01) ==
LOC: RT 14:09
PROVIDERS: PCP Internal Medicine Adolescent Medicine; Visit Provider Nurse Practitioner
DX: I42.8 Other cardiomyopathies (principal); I11.9 Hypertensive heart disease without heart failure; I25.10 Atherosclerotic heart disease of native coronary artery without angina pectoris; Z95.1 Presence of aortocoronary bypass graft
CPT/HCPCS: 93306

== ENCOUNTER 2024-09-02 10:57 | Outpatient (CLI) | payer MEDICARE, SELFPAY ==
[2024-09-02 11:37] LABS: Basophils # 0.1 K/mm3 (0-0.2); Basophils % 1.2 % (0.1-2.0); Eosinophils # 0.3 K/mm3 (0.0-0.4); Eosinophils % 3.7 % (0.1-12.0); Hematocrit 39.5 % (37.0-47.0); Hemoglobin 13.6 g/dL (12.2-16.2); Lymphocytes # 2.7 K/mm3 (0.7-4.5); Mean Corpuscular HGB Conc 34.5 g/dL (31.8-35.4); Mean Corpuscular Hemoglobin 29.5 pg (27.0-31.2); Mean Corpuscular Volume 85.5 fl (81-99); Mean Platelet Volume 7.7 fl (7.4-10.4); Monocytes # 0.5 K/mm3 (0.1-1.0); Monocytes % 6.4 % (1.7-9.3); Neutrophils # 3.6 K/mm3 (1.8-7.8); Neutrophils % 50.6 % (37.0-80.0); Platelet Count 168 K/mm3 (142-424); Red Blood Count 4.62 M/mm3 (4.20-5.40); Red Cell Distribution Width 13.6 % (11.5-17.5); White Blood Count 7.2 K/mm3 (4.8-10.8)
[2024-09-02 12:05] LABS: Alanine Aminotransferase 34 U/L (12-78); Albumin Level 4.3 g/dl (3.5-5.0); Alkaline Phosphatase 85 U/L (38-126); Anion Gap 10.4 mEq/L (5-15); Aspartate Amino Transferase 43 U/L (14-36); Bilirubin,Direct 0.4 mg/dl (0.0-0.4); Bilirubin,Indirect 0.3 mg/dL (0.0-0.9); Bilirubin,Total 0.7 mg/dl (0.2-1.3); Bilirubin,Unconjugated 0.3 mg/dL (0.0-1.1); Blood Urea Nitrogen 19 mg/dl (7-17); Calcium 9.2 mg/dl (8.4-10.2); Carbon Dioxide 30 mmol/L (22.0-30.0); Chloride 106 mmol/L (98-107); Chol/HDL Ratio 2.5 (1-3.5); Cholesterol 166 mg/dl (140-200); Estimated Glomerular Filt Rate 73 ml/min (>60); GFR (African American) 88 ML/MIN (>60); Glucose 138 mg/dl (74-100); HDL Cholesterol 66 mg/dl (40-60); Magnesium 1.9 mg/dl (1.6-2.3); Potassium 4.4 mmoL/L (3.5-5.1); Sodium 142 mmol/L (136-145); Total Protein,Serum 6.9 g/dl (6.3-8.2); Triglycerides 111 mg/dl (30-150); VLDL Cholesterol 22 mg/dL (0-40)
[2024-09-02 12:16] LABS: Direct LDL Cholesterol 84.66 mg/dL (100-129)
[2024-09-02 12:18] LABS: Free T4 (Free Thyroxine) 0.98 ng/dl (0.78-2.19)
[2024-09-02 12:36] LABS: Thyroid Stimulating Hormone 1.58 uIU/mL (0.465-4.68)
[2024-09-03 16:19] LABS: Albumin 3.5 g/dL (2.9-4.4); Alpha-1-Globulin 0.2 g/dL (0.0-0.4); Alpha-2-Globulin 0.9 g/dL (0.4-1.0); Free Lambda Lt Chains 24.7 mg/L (5.7-26.3); Protein, Total 6.9 g/dL (6.0-8.5)
[2024-09-05 15:09] LABS: Immunoglobulin A, Qn 342 mg/dL (87-352); Immunoglobulin G, Qn 960 mg/dL (586-1602); Immunoglobulin M, Qn 187 mg/dL (26-217)
[2024-09-05 16:11] LABS: Albumin, U 48.2 % (.); Alpha-1-Globulin, U 1.3 % (.); Alpha-2-Globulin, U 13.9 % (.); Beta Globulin, U 25.6 % (.); M-Spike, % Not Observed % (Not Observed); Protein,Total,Urine 17.8 mg/dL (Not Estab.)
[2024-09-06 08:53] LABS: PDF SCANNED IMAGE
[2024-09-06 08:57] LABS: PDF: SCANNED IMAGE
== END 2024-09-02 23:59 | disposition home or self-care (01) ==
LOC: LAB 10:58
PROVIDERS: PCP Internal Medicine Adolescent Medicine; Visit Provider Nurse Practitioner
DX: E78.2 Mixed hyperlipidemia (principal); E85.9 Amyloidosis, unspecified; R93.1 Abnormal findings on diagnostic imaging of heart and coronary circulation; R01.1 Cardiac murmur, unspecified; Z95.1 Presence of aortocoronary bypass graft; I25.10 Atherosclerotic heart disease of native coronary artery without angina pectoris; R94.31 Abnormal electrocardiogram [ECG] [EKG]; Z78.9 Other specified health status; I10 Essential (primary) hypertension; R06.00 Dyspnea, unspecified; E11.9 Type 2 diabetes mellitus without complications; Z79.4 Long term (current) use of insulin
CPT/HCPCS: 36415; 80048; 80061; 80076; 82784; 83735; 83883; 84155; 84156; 84165; 84166; 84439; 84443; 85025; 86334; 86335

== ENCOUNTER 2025-07-30 14:28 | Outpatient (CLI) | payer MEDICARE, SELFPAY ==
--- NOTE | 2025-07-30 14:30 | MM_ITS ---
PROCEDURE INFORMATION: Exam: MG Bilateral Screening 3D Mammography Exam date and time: 07/30/2025 2:44 PM Age: 65 years old Clinical indication: Screening examination. TECHNIQUE: Imaging protocol: Bilateral Screening tomosynthesis and 2D mammography including computer-aided detection (CAD) when performed. COMPARISON: No relevant prior studies available. FINDINGS: MAMMOGRAPHY: Breast composition: There are scattered areas of fibroglandular density. Mass: None. Architectural distortion: None. Calcifications: No suspicious calcifications. Asymmetric density: None. Skin thickening: None. Axillary adenopathy: None. IMPRESSION: No mammographic evidence of malignancy. Annual screening is recommended unless otherwise clinically indicated. ASSESSMENT: BI-RADS Category 1: Negative.
--- NOTE | 2025-07-30 14:30 | CT_ITS ---
FINAL REPORT CLINICAL HISTORY: SCREENING.FORMER SMOKER. QUIT 5 YEARS AGO. 1PPD FOR 40 YEARS. COMPARISON: None FINDINGS: CT CHEST LOW DOSE SCREENING HISTORY: Screening exam for lung cancer. 65-year-old female, former smoker who quit 5 years ago, 38-sowa-mmxt history. DOSE: CTDI vol: 2.90 mGy, DLP: 102.38 mGy*cm TECHNIQUE: Axial CT without IV contrast administration using low dose protocol. This study was performed with techniques to keep radiation doses as low as reasonably achievable, (ALARA). Individualized dose reduction techniques using automated exposure control or adjustment of mA and/or kV according to the patient's size were employed. No acute lung disease is present. No pulmonary lesions are seen suspicious for neoplasm. There is evidence of prior granulomatous disease. No pleural or pericardial effusion is seen. No adenopathy or mass lesion is present. The patient has undergone a prior CABG. IMPRESSION: No suspicious nodules identified. LUNG RADS CATEGORY 1 RECOMMENDATION: 12 month LDCT follow up Reviewed, Interpreted and Dictated by Ricardo Houston MD Transcribed by Debby Rivas Authenticated and [facility]
--- OUTSIDE RECORDS SUMMARY | 2025-07-30 15:02 | XMS_ITS | Clinical Summary ---
Author Organization [facility] Address [address] [place] [address] Phone Care Team Providers Care Procurement Inspector Name Role Phone Maximilian MANN, Christian Lockett [ ] Conditions or Problems Problem Name Problem Code Onset Date Status Entry Date Provider Comment Standard Description Annotate Other obesity due to excess calories 538830885 (SNOMED CT) 06/15 Active 06/15 Marlen Zavala Simple obesity Cellulitis, great toe, right 43199414 (SNOMED CT) 06/04 Resolved 06/04 Triny Julien Cellulitis of toe Acute osteomyeliti s, right foot/toe M86.171 (ICD-10-CM ) 06/06 Active 06/06 Triny Julien Other acute osteomyelitis, right ankle and foot Cellulitis, foot, right 492227647 (SNOMED CT) 06/06 Active 06/06 Triny Julien Cellulitis of foot Coronary artery disease, S/P CABG 373116650 (SNOMED CT) 06/06 Active 06/06 Triny Julien Arteriosclerosis of coronary artery bypass graft DM II with diabetic polyneuropat hy E11.42 (ICD-10-CM ) 06/06 Active 06/06 Triny Julien Type 2 diabetes mellitus with diabetic polyneuropathy Benign Essential Hypertension 56444404 (SNOMED CT) 06/06 Active 06/06 Triny Julien Benign hypertension Cellulitis, great toe, right 96135084 (SNOMED CT) 06/04 Removed 06/04 Fay Calabrese RN Cellulitis of toe Medications Medication Instructions Start Date Stop Date Generic Name NDC Provider MEROPENEM 1 GM SOLR Merrem 1G IV [id number] L OP ONC/LABS W/ APPTS meropenem [id number] Marleniedwardo Vivarn MEROPENEM 1 GM SOLR Merrem 1G IV [id number]/BH L OP ONC/LABS W/ APPTS meropenem [id number] Clementina Santiago RN MYCAMINE 100 MG SOLR 100mg IV Q24hrs/ [facility] micafungin [id number] Clementina Santiago RN MEROPENEM 1 GM SOLR 1gm IV Q8hrs/ [facility] meropenem [id number] Marlen Zavala TRIAMCINOLONE ACETONIDE 0.5 % CREA 3 (three) times daily Apply as directed. triamcinolone acetonide [id number] QIE qieuser SERTRALINE HCL 100 MG TABS Take 2 tablets (200 mg total) by mouth daily. sertraline [id number] QIE qieuser SACCHAROMYCES BOULARDII 250 MG CAPS Take 1 capsule (250 mg total) by mouth 2 (two) times daily for 30 days. saccharomyces boulardii [id number] QIE qieuser OZEMPIC (1 MG/DOSE) 4 MG/3ML SOPN Inject 1 mg subcutaneously once a week. semaglutide [id number] QIE qieuser MUPIROCIN 2 % OINT Apply topically 3 (three) times daily. mupirocin [id number] QIE qieuser METOPROLOL TARTRATE 25 MG TABS Take 1 tablet (25 mg total) by mouth daily. metoprolol tartrate [id number] QIE qieuser meropenem Inject 1 g intravenously every 8 (eight) hours for 14 days. 2023/08/ 22 2023/09 /05 MERREM QIE qieuser Levemir FlexPen 100 unit/mL (3 mL) insulin pen Inject 0.7 mLs (70 Units total) subcutaneously nightly. insulin detemir u-100 [id number] QIE qieuser ISOSORBIDE MONONITRATE ER 30 MG [id number] Take 1 tablet (30 mg total) by mouth daily. isosorbide mononitrate [id number] QIE qieuser insulin aspart U-100 3 (three) times daily before meals Sliding Scale. Use as directed. NovoLOG QIE qieuser GABAPENTIN 800 MG TABS Take 1 tablet (800 mg total) by mouth 4 (four) times daily. Max Daily Amount: 3,200 mg gabapentin [id number] QIE qieuser DULOXETINE HCL 60 MG CPEP Take 1 capsule (60 mg total) by mouth daily. duloxetine [id number] QIE qieuser ATORVASTATIN CALCIUM 80 MG TABS Take 1 tablet (80 mg total) by mouth daily. atorvastatin [id number] QIE qieuser GOODSENSE ASPIRIN 81 MG CHEW Take 1 tablet (81 mg total) by mouth daily. aspirin [id number] QIE qieuser ACETAMINOPHEN 325 MG TABS Take 2 tablets (650 mg total) by mouth every 6 (six) hours if needed for Pain. acetaminophen [id number] QIE qieuser MEROPENEM 1 GM SOLR 1gm IV Q8hrs/ [facility] meropenem [id number] Fay Calabrese RN MYCAMINE 100 MG SOLR 100mg IV Q24hrs/ [facility] micafungin [id number] Fay Calabrese RN Medications Administered No information available. Allergies, Adverse Reactions, Alerts Allergy Name Reaction Description Start Date Severity Statu s Provider LATEX TAPE Moderate Active Christian Yao MD Results Date Name Value Unit Range Flag Description Office Visit: Office Visit:1 3 MEDS REVIEW Done Documenta tion of current medications (procedure) ORALTOBACUSE Never Tobacco smoking status SMOK STATUS Never smoker Tobacco smoking status Lab Report: CBC WITH AUTO DI FFERENTIAL ZZ-GE-[id number] 0.0 /100 WBC 0.0-0.2 GE use only - fo r LinkLogic import when terms are not otherwise specified IMMATUREGRAN 0.02 10*3/MM3 0.00-0.05 Immature granulocytes [#/volume] in Blood BASO# 0.02 10*3/mm3 0.00-0.20 Basophils [#/vol ume] in Blood EOS ABSLT 0.15 10*3/uL 0.00-0.40 Eosinophi ls [#/volume] in Blood MONOSCT AUTO 0.37 10*3/uL 0.10-0.90 Monocy wong [#/volume] in Blood by Automated count LYMPHCT AUTO 2.88 10*3/mm3 0.70-3.10 Lymph ocytes [#/volume] in Blood by Automated count ABS NEUTROPH 3.09 10*3/uL 1.70-7.00 Neutro phils [#/volume] in Blood IMM GRANU % 0.3 % 0.0-0.5 Immature granulocytes/100 leukocytes in Blood % EOS AUTO 2.3 % 0.3-6.2 Eosinophil s/100 leukocytes in Blood by Automated count MONOCYTE % 5.7 % 5.0-12.0 Monocytes /100 leukocytes in Blood by Automated count LYMPHOCY BF 44.1 % 19.6-45.3 lymphoc ytes as percent of body fluid leukocytes NEUTROP BF 47.3 % 42.7-76.0 Neutroph ils/100 leukocytes in Body fluid PLATELETS 175 10*3/mm3 140-450 Platelets [#/volume] in Blood by Automated count RDW_ 13.2 12.3-15.4 RDW, no uni ts MCHC 32.4 G/DL 31.5-35.7 MCHC [Mass/ volume] by Automated count MCH 27.3 pg 26.6-33.0 MCH [Entiti c mass] by Automated count MCV 84.2 fL 79.0-97.0 MCV [Entiti c volume] by Automated count HCT 44.1 % 34.0-46.6 Hematocrit [Volume Fraction] of Blood by Automated count HGB 14.3 g/dL 12.0-15.9 Hemoglobin [Mass/volume] in Blood RBC 5.24 10*6/mm3 3.77-5.28 Erythrocyt es [#/volume] in Blood by Automated count WBC 6.53 10*3/mm3 3.40-10.8 0 Leukocytes [#/volume] in Blood by Automated count Lab Report: C-REACTIVE PROTE IN CRP <0.30 mg/dL 0.00-0.50 C reactive protein [Mass/volume] in Serum or Plasma Lab Report: COMPREHENSIVE ME TABOLIC PANEL ANIONGAP 9.0 mmol/L 5.0-15.0 anion gap, serum BUN/CREAT 22.9 7.0-25.0 Urea nitrogen/Creatinine [Mass Ratio] in Serum or Plasma BILI TOTAL 0.5 mg/dL 0.0-1.2 Bilirubin. total [Mass/volume] in Serum or Plasma ALK PHOS 131 U/L 39-117 H Alkaline kaila sphatase [Enzymatic activity/volume] in Blood SGOT (AST) 54 U/L 1-32 H Aspartate aminotransferase [Enzymatic activity/volume] in Serum or Plasma SGPT (ALT) 44 U/L 1-33 H Alanine aminotransferase [Enzymatic activity/volume] in Serum or Plasma ALBUMIN 4.0 g/dL 3.5-5.2 Albumin [Mass/volume] in Serum or Plasma PROTEIN, TOT 7.8 g/dL 6.0-8.5 Protein [Mass/volume] in Serum or Plasma CALCIUM 10.0 mg/dL 8.6-10.5 Calcium [Moles/volume] in Serum or Plasma CO2 31.0 mmol/L 22.0-29.0 H Carbon diox tamica, total [Moles/volume] in Venous blood CHLORIDE 101 mmol/L 98-107 Chloride [Moles/volume] in Serum or Plasma POTASSIUM 4.1 mmol/L 3.5-5.2 Potassium [Moles/volume] in Serum or Plasma SODIUM 141 mmol/L 136-145 Sodium [Moles/volume] in Serum or Plasma CREATININE 0.70 mg/dL 0.57-1.00 Creatini ne [Mass/volume] in Serum or Plasma BUN 16 mg/dL 8-23 Urea nitrogen [Mass/volume] in Serum or Plasma GLUCOSE SER 128 mg/dL 65-99 H Glucose [Mass/volume] in Serum or Plasma Lab Report: SEDIMENTATION RA TE ESR 52 mm/h 0-30 H Erythrocyte sedimentation rate by Westergren method Plan of Care Type Date Detail Pending order Discontinue IV a ntibiotics Pending order PICC Removal Pending order Continue IV anti biotics Pending order Weekly Labs (Con tinue) Pending order Weekly PICC Line Care Pending order Continue IV anti biotics Pending order Weekly Labs (Con tinue) Pending order Weekly PICC Line Care Pending order Weekly PICC Line Care Pending order Stat Weekly Labs Pending order Weekly PICC Line Care Procedures Code Procedure Name Date Entry Date CPT-DC Discontinue IV antibiotics 2 CPT-PICREM PICC Removal CPT-ca Continue IV antibiotics 2022 CPT-cwl Weekly Labs (Continue) 06/18 CPT-wpc Weekly PICC Line Care 06/18 CPT-ca Continue IV antibiotics 2022 CPT-cwl Weekly Labs (Continue) 06/06 CPT-wpc Weekly PICC Line Care 06/06 CPT-wpc Weekly PICC Line Care 06/06 CPT- stat weekly Stat Weekly Labs CPT-wpc Weekly PICC Line Care 06/04 Vital Signs Date Name Value Unit Description BMI (Body Mass Index) 31.27 kg/m2 Bod y Mass Index (Ratio) Body Temperature 97.6 [degF] temperat ure E&M BP Diastolic 87 mm[Hg] blood pressu re, diastolic BP Systolic 135 mm[Hg] blood pressur e, systolic Heart Rate 98 /min pulse rate Height 62 [in_us] height E&M Respiratory Rate 16 /min respirat ory rate E&M Weight Measured 171 [lb_av] weight E& M Weight Measured 171 [lb_av] weight E& M Immunizations No information available. Advance Directives Directive Description Start Date NO ADVANCE DIRECTIVES AT THIS TIME 06/06
--- OUTSIDE RECORDS SUMMARY | 2025-07-30 15:03 | XMS_ITS | Encounter Summary ---
Author Organization [facility] Address [address] [place] [address] Care Team Providers Care Rubberizing Mechanic Name Role Phone Dion Urrutia MD Unavailable [phone] Aries Muse MD Primary Care Provider [phone] Encounter Details Date Type Department Care Team ([facility] st Contact Info) Description 07/17/2022 Lab Requisition [facility] [address] [place] [address] Romelia Fischer MD [address] [facility] [address] [facility] [address] [place] [address] Encounter for general adult medical examination without abnormal findings Social History Tobacco Use Types Packs/Day Years Used Date Smoking Tobacco: Former Cigarettes 1 40 1 978 - 2018 Passive Smoke Exposure: Past Smokeless Tobacco: Never Alcohol Use Standard Drinks/Week Comments Not Currently 0 (1 standard drink = 0.6 oz pur e alcohol) Comments No Sex and Gender Information Value Date Recorded Sex Assigned at Not on file Legal Sex Female 1:04 PM EDT Gender Identity Not on file Sexual Orientation Not on file Occupation Industry Job Start Date Job End Date unemployed Not on file Not on file Not on file COVID-19 Exposure Response Date Recorded In the last 10 days, have yo u been in contact with someone who was confirmed or suspected to have Coronavirus/COVID-19? No / Unsure 07/12/2022 7:17 AM EDT documented as of this encounter Plan of Treatment Not on file documented as of this encounter Procedures Procedure Name Priority Date/Time Associated Diagnosis Comments MANDY AURIS SURVEILLANCE BY PCR Routine 07/17/2022 12:00 PM EDT Encounter for general adult medical examination without abnormal findings documented in this encounter Results * Mandy auris Surveillance by PCR (07/17/2022 12:00 PM EDT) Mandy auris PCR Result Not Detected Not Detected 07/19/2022 10:24 AM EDT [facility] Swab (Axilla and Groin) 07/17/2022 12:00 PM EDT 07/17/2022 12:04 PM EDT Narrative [facility] - 07/19/2022 10:24 AM EDT This PCR assay was developed and its performance characteristics determined by [facility] as appropriate for clinical purposes. This assay has not been cleared or approved by the FDA, but is performed in a CLIA regulated laboratory that is qualified to perform high-complexity testing. Romelia Rojas MD LAB MICROBIOLOGY - GENERAL ORDERABLES Final Result [facility] [address] [place] [address] documented in this encounter Visit Diagnoses Diagnosis Encounter for general adult medical examination without abnormal findings documented in this encounter Additional Health Concerns Assessment Noted Time A fall risk assessment has been complete d for the patient 06/22/2022 11:09 AM EDT documented as of this encounter Care Teams Rubberizing Mechanic Relationship Specialty Start Date End Date Aries Muse MD [address] [place] [address] PCP - General 06/22/22 Dion Urrutia MD [address] [place] [address] Referring Physician Cardiology 06/21/22 documented as of this encounter
--- OUTSIDE RECORDS SUMMARY | 2025-07-30 15:03 | XMS_ITS | Clinical Summary ---
Author Organization [facility] Address [address] [place] [address] Care Team Providers Care Hand Salter Name Role Phone Dion Urrutia MD Unavailable [phone] Aries Muse MD Primary Care Provider [phone] Allergies No known active allergies Medications DULoxetine (Cymbalta) [address] capsule Take 60 mg by mouth 1 (one) time each day in the evening. 2 Active gabapentin (Neurontin) 800 MG tablet Take 1 tablet every morning and 2 tablets every night 2 Active sertraline (Zoloft) 100 MG tablet Take 100 mg by mouth 2 (two) times a day. 2 Active atorvastatin (Lipitor) 80 MG tablet Take 1 tablet (80 mg total) by mouth every night. 30 tablet 2 2 Active acetaminophen (Tylenol) 325 MG tablet Take 2 tablets (650 mg total) by mouth every 6 (six) hours if needed for pain, headaches or fever. 100 tablet 2 Active Additional Information Patient not taking.Reported on 01/03/2023 HYDROcodone-acet aminophen ([place]) 5-325 MG tablet Take 1 tablet by mouth every 4 (four) hours if needed for severe pain for up to 40 doses. 40 tablet 2 Active Additional Information Patient not taking.Reported on 01/03/2023 isosorbide mononitrate ER (Imdur) 30 MG 24 hr tablet Take 1 tablet (30 mg total) by mouth 1 (one) time each day. Do not crush or chew. 30 tablet 2 2 Active metoprolol tartrate (Lopressor) 25 MG tablet Take 1 tablet (25 mg total) by mouth 2 (two) times a day. 60 tablet 2 2 Active HYDROcodone-acet aminophen ([place]) 5-325 MG tablet Take 1 tablet by mouth every 6 (six) hours if needed for severe pain for up to 20 doses. 20 tablet 2 Active Additional Information Patient not taking.Reported on 01/03/2023 pen needle, diabetic (B-D UF III MINI PEN NEEDLES) 31G X 5 MM miscIndications: Type 2 diabetes mellitus with diabetic mononeuropathy, with long-term current use of insulin Use to inject insulin 4+ times daily 100 each 11 2 Active methocarbamol (Robaxin) 500 MG tablet TAKE 1 TABLET BY MOUTH TWICE DAILY NEEDED FOR CHEST PAIN 3 Active Vibegron (Gemtesa) 75 MG tablet 1 (one) time each day at the same time. 3 Active insulin aspart (NovoLOG) 100 UNIT/ML injection penIndications:T ype 2 diabetes mellitus with other specified complication, with long-term current use of insulin Inject 10 units before high carb meals PLUS 1 unit for every 30 points your blood glucose >150, MDD 70 units 30 mL 5 3 Active Levemir FlexPen 100 UNIT/ML injection pen Inject 70 Units under the skin every night with titration as needed and instructed MDD 100 units 30 mL 5 3 Active Continuous Blood Gluc Sensor (Dexcom G6 Sensor) miscIndications: Type 2 diabetes mellitus with diabetic mononeuropathy, with long-term current use of insulin CHANGE SENSOR EVERY 10 DAYS DIRECTED PATIENT NEEDS TO SCHEDULE AN APPOINTMENT TO RECEIVE FURTHER REFILLS 3 each 3 3 Active Continuous Blood Gluc Transmit (Dexcom G6 transmitter) miscIndications: Type 2 diabetes mellitus with diabetic mononeuropathy, with long-term current use of insulin USE DIRECTED CHANGE EVERY 90 DAYS PATIENT NEEDS TO SCHEDULE AN APPOINTMENT TO RECEIVE FURTHER REFILLS 1 each 4 Active Active Problems Problem Noted Date Diagnosed Date Family history of premature coronary artery dise ase 08/10/2022 Postoperative anemia due to acute blood loss 10/2021 Hypertriglyceridemia 07/17/2022 TIMBO (generalized anxiety disorder) 07/11/2022 Hyperlipidemia 06/22/2022 Obesity (BMI 30.0-34.9) 06/22/2022 Peripheral neuropathy 06/22/2022 Coronary artery disease 06/21/2022 Hypertension 06/21/2022 Type 2 diabetes mellitus with diabetic mononeuro petey 06/21/2022 Resolved Problems Problem Noted Date Diagnosed Date Resolved Date Hyperglycemia 07/17/2022 08/08/2022 Thrombocytopenia 07/17/2022 08/09/2022 Leukocytosis 07/17/2022 08/08/2022 Hyperphosphatemia 07/17/2022 08/08/2022 Hypocalcemia 07/17/2022 08/08/2022 Hypomagnesemia 07/17/2022 08/08/2022 Hypokalemia 07/17/2022 08/08/2022 Exposure to phentermine 07/11/2022 11/0 10/2021 Immunizations Immunization Administration Dates Next Due Influenza, injectable, quadrivalent, preservativ e free 07/27/2020 [place] COVID-19 Vaccine (Blue Cap) 18+ 04/25/20 21 Family History Medical History Relation Name Comments Heart attack Brother Coronary artery disease Mother Anesthesia problems Neg Hx Malig Hyperthermia Neg Hx Relation Name Status Comments Brother Mother age 62 Social History Tobacco Use Types Packs/Day Years Used Date Smoking Tobacco: Former Cigarettes 1 40 1 2017 Passive Smoke Exposure: Past Smokeless Tobacco: Never Tobacco Cessation:Counseling Given: Not Answered Alcohol Use Standard Drinks/Week Comments Not Currently [...] file Not on file Not on file Last Filed Vital Signs Vital Sign Reading Time Taken Comments Blood Pressure 118/69 05/23/2023 9:42 AM EDT Pulse 79 05/23/2023 9:42 AM EDT Temperature 36.6 C (97.9 F) 05/23/2023 9:42 AM EDT Respiratory Rate 20 05/23/2023 9:42 AM EDT Oxygen Saturation 98% 05/23/2023 9:42 AM EDT RA Inhaled Oxygen Concentration - - Weight 81 kg (178 lb 9.2 oz) 01/03/2023 12:38 PM EDT Height 157.5 cm (5' 2 ) 01/03/2023 12:38 PM EDT Body Mass Index 32.66 01/03/2023 12:38 PM EDT Plan of Treatment Health Maintenance Due Date Last Done Comments [facility]-Depression Screening 1962 [facility]-HIV Screening 1962 [facility]-Hepatitis C Screening 1962 [facility]-/Child/Adol SDOH Screenings 1962 Diabetes: Dental Exam 1972 [facility]- SDOH Screenings 1980 [facility]-Adult SDOH Screenings 1980 [facility]-DTaP,Tdap,and Td Vaccines (1 - Tdap) 1981 [facility]-Pneumococcal Vaccine: 50+ Years (1 of 2 - PCV) 1981 CT Colonography 2007 Colonoscopy 2007 FIT-DNA 2007 FIT 2007 FOBT 2007 Sigmoidoscopy 2007 [facility]-Colorectal Cancer Screening 2007 [facility]-Breast Cancer Screening 2012 [facility]-Lung Cancer Screening 2012 [facility]-Zoster Vaccines (1 of 2) 2012 [facility]-RSV Vaccine: 60+ Years or (1 - Risk 60-74 years 1-dose series) 2022 [facility]-Diabetes: Hemoglobin A1C 07/03/2023, 09/15/2022, 06/22/2022 [id number] Vaccine ( season) 2025 11/12/2021, 04/25/2021 [facility]-Influenza Vaccine (#1) 2025 07/27/2020 [facility]-Obesity Intervention Completed 023, 01/03/2023, 01/03/2023, Additional history exists HPV Vaccines Aged Out No longer eligi ble based on patient's age to complete this topic [facility]-HIB Vaccines Aged Out No longer e ligible based on patient's age to complete this topic [facility]-Hepatitis A Vaccines Aged Out No longer eligible based on patient's age to complete this topic [facility]-IPV Vaccines Aged Out No longer e ligible based on patient's age to complete this topic [facility]-Rotavirus Vaccines Aged Out No lo nger eligible based on patient's age to complete this topic Procedures Procedure Name Priority Date/Time Associated Diagnosis Comments POCT GLYCOSYLATED HEMOGLOBIN (HGB A1C) Routine 01/03/2023 12:47 PM EDT Type 2 diabetes mellitus with other specified complication, with long-term current use of insulin ([facility]) from Last 3 Months or Most Recently Relevant to Health Maintenance Results * POCT glycosylated hemoglobin (Hb A1C) docked device (01/03/2023 12:47 PM EDT) POCT Hemoglobin A1C 8.6 4.4-6.6 % % [facility] Kit Lot Number n/a [facility] Kit Expiration Date n/a [facility] Blood Venous blood specimen / Unknown 01/03/2023 12:47 PM EDT Jeanette CHIN POINT OF CARE TEST EN TER/EDIT ORDERABLES Final Result Performing Organization Address City/State/[facility] Co de Phone Number [facility] [address] [place] [address] from Last 3 Months or Most Recently Relevant to Health Maintenance Insurance MEDICAID Advance Directives * Full Code (Latest Code Status on File) Date Activated Date Inactivated Comments 07/12/2022 4:42 PM 07/17/2022 4:33 PM Question Answer Comments Patient has decision-making capacity? Yes Care Teams Hand Salter Relationship Specialty Start Date End Date Aries Muse MD [facility] [place] [id number] PCP - General 06/22/22 Dion Urrutia MD [facility] [address] [phone] Referring Physician Cardiology 06/21/22
--- OUTSIDE RECORDS SUMMARY | 2025-07-30 15:03 | XMS_ITS | Encounter Summary ---
Author Organization Healthcare Address [address] [place] [address] Care Team Providers Care German Teacher Name Role Phone Dion Urrutia MD Unavailable [phone] Aries Muse MD Primary Care Provider [phone] Reason for Visit * Reason Comments Med Refill Encounter Details Date Type Department Care Team (Late st Contact Info) Description 10/30/2022 Refill [facility] [address], [address] [place] [address] Jannie Ulloa S, GEOGRAPHY HEAD [address] [place] [address] Social History Tobacco Use Types Packs/Day Years Used Date Smoking Tobacco: Former Cigarettes 1 40 1 978 2017 Passive Smoke Exposure: Past Smokeless Tobacco: [...] file Not on file Not on file documented as of this encounter Plan of Treatment Not on file documented as of this encounter Visit Diagnoses Not on filedocumented in this encounter Additional Health Concerns Assessment Noted Time A fall risk assessment has been complete d for the patient 09/15/2022 12:42 PM EST documented as of this encounter Care Teams German Teacher Relationship Specialty Start Date End Date Aries Muse MD [address] [phone] PCP - General 06/22/22 Dion Urrutia MD [address] [phone] Referring Physician Cardiology 06/21/22 documented as of this encounter
--- OUTSIDE RECORDS SUMMARY | 2025-07-30 15:03 | XMS_ITS | Encounter Summary ---
Author Organization Healthcare Address [address] [place] [address] Care Team Providers Care Metaphysician Name Role Phone Dion Urrutia MD Unavailable [phone] Aries Muse MD Primary Care Provider [phone] Encounter Details Date Type Department Care Team ([facility] st Contact Info) Description 07/17/2022 Lab Requisition [facility] Lab [address] [place] [address] Romelia Fischer MD [address] [facility] 7[address] [facility] [address] [place] [address] Encounter for general adult medical [...] Procedure Name Priority Date/Time Associated Diagnosis Comments MULTI DRUG RESISTANCE TEST Routine 07/17/2022 12:00 PM EDT Encounter for general adult medical examination without abnormal findings documented in this encounter Results * Multi Drug Resistance Test (07/17/2022 12:00 PM EDT) Culture No growth at day 1 07/18/2022 2:54 PM EDT [facility] Swab (Nares and Alayna Rectal) 07/17/2022 12:00 PM EDT 07/17/2022 12:03 PM EDT us Romelia Rojas MD LAB MICROBIOLOGY - GENERAL ORDERABLES Final Result [facility] [address] [place] [address] documented in this encounter Visit Diagnoses Diagnosis Encounter for general adult medical examination without abnormal findings documented in this encounter Additional Health Concerns Assessment Noted Time A fall risk assessment has been complete d for the patient 06/22/2022 11:09 AM EDT documented as of this encounter Care Teams Metaphysician Relationship Specialty Start Date End Date Aries Muse MD [address] [place] [id number] PCP - General 06/22/22 Dion Urrutia MD [address] [place] [id number] Referring Physician Cardiology 06/21/22 documented as of this encounter
--- OUTSIDE RECORDS SUMMARY | 2025-07-30 15:03 | XMS_ITS | Clinical Summary ---
Author Organization [employer] ([place], [place], [place], [place]) Address [address] [place] [address] Care Team Providers Care Space Technologist Name Role Phone Unavailable Primary Care Provider Unavailabl e Allergies Active Allergy Reactions Criticality Noted Date Comments Latex Other (See Comments) 06/06/2023 Medications triamcinolone (KENALOG) 0.5 % cream 3 (three) times daily Apply as directed. 02/27/20 23 Active sertraline (ZOLOFT) 100 MG tablet Take 2 tablets (200 mg total) by mouth daily. 04/20/20 23 Active mupirocin (BACTROBAN) 2 % ointment Apply topically 3 (three) times daily. 03/30/20 23 Active isosorbide mononitrate (IMDUR) 30 MG 24 hr tablet Take 1 tablet (30 mg total) by mouth daily. 05/07/20 23 Active insulin aspart U-100 (NovoLOG) 100 unit/mL (3 mL) InPn 3 (three) times daily before meals Sliding Scale. Use as directed. 01/04/20 23 Active gabapentin (NEURONTIN) 800 MG tablet Take 1 tablet (800 mg total) by mouth 4 (four) times daily. 04/10/20 23 Active acetaminophen (TYLENOL) 325 MG tablet Take 2 tablets (650 mg total) by mouth every 6 (six) hours if needed for Pain. 07/17/20 22 Active amoxicillin (AMOXIL) 500 MG capsule Take 1 capsule (500 mg total) by mouth 3 (three) times daily. 01/09/20 24 Active oxyCODONE-acetamin ophen (PERCOCET) 5-325 mg per tablet Take 1 tablet by mouth every 4 (four) hours as needed. 01/09/20 24 Active nystatin (MYCOSTATIN) 100,000 unit/gram cream Apply topically 3 (three) times daily. 01/02/20 24 Active ibuprofen (ADVIL,MOTRIN) 800 MG tablet Take 1 tablet (800 mg total) by mouth every 6 (six) hours as needed. 01/09/20 24 Active DULoxetine (CYMBALTA) 60 MG capsuleIndications :Episode of recurrent major depressive disorder, unspecified depression episode severity (HCC),TIMBO (generalized anxiety disorder) Take 1 capsule (60 mg total) by mouth daily. 90 capsule 3 02/01/20 24 Active semaglutide (Ozempic) 0.25 mg or 0.5 mg(2 mg/1.5 mL) PnIjIndications:Ty pe 2 diabetes mellitus with hyperglycemia, with long-term current use of insulin ([facility]) Inject 0.375 mLs (0.5 mg total) subcutaneously once a week. 1.5 mL 2 04/18/20 24 Active blood-glucose sensor (DEXCOM G7) DeviIndications:Ty pe 2 diabetes mellitus with hyperglycemia, with long-term current use of insulin ([facility]) Change sensor every 10 days.. 3 each 3 04/18/20 24 Active blood-glucose meter,continuous (DEXCOM G7) MiscIndications:Ty pe 2 diabetes mellitus with hyperglycemia, with long-term current use of insulin ([facility]) Check blood glucose daily.. 1 each 04/18/20 24 Active atorvastatin (LIPITOR) 80 MG tabletIndications: Mixed hyperlipidemia Take 1 tablet (80 mg total) by mouth daily. 90 tablet 1 04/19/20 24 Active insulin glargine (Lantus Solostar U-100 Insulin) 100 unit/mL (3 mL) InPnIndications:Ty pe 2 diabetes mellitus with hyperglycemia, with long-term current use of insulin ([facility]) Inject 63 Units subcutaneously nightly. 75 mL 04/21/20 24 Active oxybutynin (DITROPAN-XL) 10 MG 24 hr tabletIndications: Overactive bladder Take 1 tablet (10 mg total) by mouth daily. 90 tablet 12/19/19 25 Active Active Problems Problem Noted Date Diagnosed Date Abnormal electrocardiogram (ECG) (EKG) 4 01/16/2024 Abnormal cardiovascular stress test 01/16/2024 01/16/2024 Acquired hallux varus of both feet 01/16/2024 01/16/2024 Acquired hammertoe of great toes of both feet 01/16/2024 Atypical angina 01/16/2024 01/16/2024 Atypical chest pain 01/16/2024 01/16/2024 Cellulitis of foot, right 01/16/20242023 Decreased pedal pulses 01/16/2024 Dyspnea 01/16/2024 01/16/2024 Ex-smoker for less than 1 year 01/16/2024 0 01/16/2024 History of coronary artery bypass graft x 3 01/0601/16/2024 Incurved toenail 01/16/2024 01/16/2024 Primary osteoarthritis of both feet 01/16/2024 01/16/2024 Rash and nonspecific skin eruption 01/16/2024 01/16/2024 UTI (urinary tract infection) 01/16/2024 Wound of right foot 01/16/2024 01/16/2024 HTN (hypertension) with goal to be determined 01/16/2024 Diabetes mellitus 01/16/2024 01/16/2024 Acute osteomyelitis 06/06/2023 01/16/2024 Diabetic foot ulcer with osteomyelitis Neuropathic diabetic ulcer of foot 05/23/2023 Family history of premature coronary artery dise ase 08/10/2022 01/16/2024 Postoperative anemia due to acute blood loss 10/202101/16/2024 Hypertriglyceridemia 07/17/2022 01/16/2024 TIMBO (generalized anxiety disorder) 07/11/2022 Hyperlipidemia 06/22/2022 Peripheral neuropathy 06/22/2022 Obesity (BMI 30.0-34.9) 06/22/2022 01/16/20 24 Coronary artery disease 06/21/2022 Hypertension 06/21/2022 Type 2 diabetes mellitus with diabetic mononeuro petey 06/21/2022 Immunizations Immunization Administration Dates Next Due Covid-19 Vaccine MRNA(PF,Pre mixed)12YR+ ([employer])([id number]) 11/12/2021 Influenza Four-qiv Pf 07/27/2020 Social History Tobacco Use Types Packs/Day Years Used Date Smoking Tobacco: Never Smokeless Tobacco: Never Tobacco Cessation:Counseling Given: Not Answered Alcohol Use Standard Drinks/Week Comments Never 0 (1 standard drink = 0.6 oz pur e alcohol) PRAPARE - Transportation Answer Date Re corded In the past 12 months, has l ack of transportation kept you from medical appointments or from getting medications? No 05/23/2023 Lack of Transportation (Non-Medical) Not on file 05/23/2023 Food Insecurity Answer Date Recorded Food run out past 12 months Not on file 10/09 Food did not last past 12 months Not on file 10/27/2023 Employment Answer Date Recorded Help finding and keeping a job Not on file 0 10/27/2023 Family and Community Support Answer Richar e Recorded Help with Day to Day Activities Not on file 10/27/2023 Feeling Lonely or Isolated Not on file 10/27 Educational Attainment Answer Date Yo rded Speak language other than Sudanese at home Not on file 10/27/2023 Want help with school or training Not on file 10/27/2023 Substance Use Answer Date Recorded Used prescription meds for non-medical reasons N ot on file 10/27/2023 Used illegal drugs past 12 months Not on file 10/27/2023 Comments No Sex and Gender Information Value Date Recorded Sex Assigned at Not on file Legal Sex Female 8:55 AM CDT Gender Identity Not on file Sexual Orientation Not on file Last Filed Vital Signs Vital Sign Reading Time Taken Comments Blood Pressure 107/71 04/18/2024 1:22 PM EDT Pulse 92 04/18/2024 1:22 PM EDT Temperature 36.4 C (97.6 F) 01/16/2024 1:26 PM EDT Respiratory Rate 16 05/29/2023 10:21 PM EDT Oxygen Saturation 99% 04/18/2024 1:22 PM EDT Inhaled Oxygen Concentration - - Weight 76 kg (167 lb 9 oz) 04/18/2024 1:22 PM ED T Height 157.5 cm (5' 2 ) 04/18/2024 1:22 PM EDT Body Mass Index 30.65 04/18/2024 1:22 PM EDT Plan of Treatment Health Maintenance Due Date Last Done Comments CT Colonography 1962 Colonoscopy 1962 Colorectal Cancer Screening 1962 Diabetic Kidney Health Evaluation (KED) 1962 FOBT/FIT 1962 Fit-DNA (Cologuard) 1962 Sigmoidoscopy 1962 Diabetic Eye Exam 1972 HIV Screening 1977 DTAP/TDAP/TD VACCINES (1 - Tdap) 1981 Pneumococcal 50+ years (1 of 2 - PCV) 1981 Pap Smear 1983 Breast Cancer Screening 2002 Shingles Vaccine (Zoster) (1 of 2) 2012 Respiratory Syncytial Virus (RSV) Adult or (1 - Risk 60-74 years 1-dose series) 2022 Hemoglobin A1C 07/19/2024 04/18/2024, 01/16/2024 Tobacco Cessation Counseling and Screening (12+) 04/23/2025 04/23/2024 COVID-19 VACCINE (3 - season) 06/08/202502/2022, 04/25/2021 Influenza Vaccine (#1) 2025 Lipid Panel 04/18/2027 04/18/2024, 01/16/2024 Hepatitis C Screening Completed 05/25/2023 Medical Devices Implanted Type Area Phone Operator Device Identifier Shelf Expiration Date Model / Serial / Lot Graft Skin Marigen 3.0x3.5 [id number] - [id number] Implanted:Qty: 1 on 05/26/2023 by Anselmo Ronquillo DPM at [facility] IMPLANTS Right: Foot [employer] 01/15/2025 [id number] / / [id number] Procedures Procedure Name Priority Date/Time Associated Diagnosis Comments LIPID PANEL Routine 04/18/2024 3:16 PM EDT Hypertriglyceridemi a POCT GLYCATED HEMOGLOBIN, TOTAL Routine 04/18/2024 1:46 PM EDT Type 2 diabetes mellitus with hyperglycemia, with long-term current use of insulin (HCC) HEPATITIS PANEL, ACUTE Routine 05/25/2023 7:54 AM EDT from Last 3 Months or Most Recently Relevant to Health Maintenance Results * (ABNORMAL) Lipid panel (04/18/2024 3:16 PM EDT) Pathologist [facility] Cholesterol, Total 204(H) 100 - 199 mg/dL [facility] Triglycerides 153(H) 0 - 149 mg/dL [facility] HDL Cholesterol 63 >39 mg/dL [facility] VLDL Cholesterol Gonzalo 27 5 - 40 mg/dL [facility] LDL Calculated 114(H) 0 - 99 mg/dL [facility] Blood 04/18/2024 3:16 PM EDT 04/18/2024 Narrative [facility] - 04/19/2024 7:07 AM EDT Performed at: 01 - [facility] [id number] Automation Technologist: Reji Mcgraw PhD, Phone: [phone] Thania Jaquez APRN LAB BLOOD ORDERABLES Final Result [facility] * POCT glycated hemoglobin, total (A1C) (04/18/2024 1:46 PM EDT) [facility] Hemoglobin A1C 9.8 % 04/18/2024 1:46 PM EDT Thania Jaquez APRN POINT OF CARE TEST ORDERAB LES Final Result * Hepatitis panel, acute (05/25/2023 7:54 AM EDT) [facility] Hep A IgM Nonreactive Nonreactive, Equivocal 05/25/2023 9:32 AM EDT [facility] Hep B C IgM Nonreactive Nonreactive 05/25/2023 9:32 AM EDT [facility] Hepatitis B surface antigen Nonreactive Nonreactive, Equivocal 05/25/2023 9:32 AM EDT [facility] Hepatitis C Ab Nonreactive Nonreactive, Equivocal 05/25/2023 9:32 AM EDT [facility] Blood Venipuncture / Unknown 05/25/2023 7:54 AM EDT 05/25/2023 8:08 AM EDT [facility] - 05/25/2023 9:32 AM EDT Hepatitis A Antibody IgM: (a) A negative test result does not exclude the possibility of exposure to the hepatitis A virus. (b) This test can be used to determine if a patient has or recently had an acute or asymptomatic hepatitis A infection. (c) A reactive result does not exclude co-infection by another hepatitis virus. Biotin supplements can cause clinically significant incorrect lab results. The FDA has seen an increase in the number of adverse events related to biotin interference with lab tests. Hepatitis B Core Antibody IgM: A reactive anti-HBc IgM result does not exclude co-infection by another hepatitis virus. Biotin supplements can cause clinically significant incorrect lab results. The FDA has seen an increase in the number of adverse events related to biotin interference with lab tests. Hepatitis B Surface Antibody Qual: This test does not differentiate between a vaccine induced immune response and an immune response induced by infection with HBV. Individuals that have received blood component therapies, (e.g. whole blood, plasma, immunoglobulin) administered during the previous 3 to 6 months may have a false reactive anti HBs due to passive transfer of anti HBs. A positive anti HBs result does not exclude co infection by another hepatitis virus. Biotin supplements can cause clinically significant incorrect lab results. The FDA has seen an increase in the number of adverse events related to biotin interference with lab tests. Hepatitis B Surface Antigen: This test may not detect all HBV mutants. If acute or chronic HBV infection is suspected and this test is non-reactive other HBV markers should be tested. Biotin supplements can cause clinically significant incorrect lab results. The FDA has seen an increase in the number of adverse events related to biotin interference with lab tests. Hepatitis C Antibody: A negative test result does not exclude the possibility of exposure to the hepatitis C virus and a reactive result does not exclude co-infection by another hepatitis virus. Biotin supplements can cause clinically significant incorrect lab results. The FDA has seen an increase in the number of adverse events related to biotin interference with lab tests. Joshua Castro DO LAB BLOOD ORDERABLES Final Re sult [facility] [address] [phone] from Last 3 Months or Most Recently Relevant to Health Maintenance Advance Directives For more information, please contact: [phone] * Full Code (Latest Code Status on File) Date Activated Date Inactivated Comments 05/23/2023 1:04 PM 05/30/2023 6:01 PM
--- OUTSIDE RECORDS SUMMARY | 2025-07-30 15:03 | XMS_ITS | Encounter Summary ---
Author Organization [employer] ([place], [place], [place], [place]) Address [address] [place] [address] Care Team Providers Care Medical Lab Director Name Role Phone Thania Jaquez APRN Primary Care Provider Jeri Dubois APRN Primary Care Provider [phone] Reason for Visit * Reason Comments Med Change Request Encounter Details Date Type Department Care Team (Late st Contact Info) Description 04/21/2024 [facility] [address] [address] Thania Jaquez APRN [address] [place] [id number] Type 2 diabetes mellitus with hyperglycemia, with long-term current use of insulin (HCC) Social History Tobacco Use Types Packs/Day Years Used Date Smoking Tobacco: Never Smokeless Tobacco: Never Alcohol Use Standard Drinks/Week Comments Never 0 [...] Date Yo rded Speak language other than Icelandic at home Not on file 10/27/2023 Want [...] on file Sexual Orientation Not on file documented as of this encounter Plan of Treatment Not on file documented as of this encounter Visit Diagnoses Diagnosis Type 2 diabetes mellitus with hyperglycemia, with long-term current use of insulin (HCC) documented in this encounter Care Teams Medical Lab Director Relationship Specialty Start Date End Date Thania Jaquez APRN [address] [place] [address] PCP - General Family Medicine 01/16/24 07/24/24 Jeri Dubois APRN [address] [place] [address] PCP - General Nurse Practitioner 07/25/24 04/12/25 documented as of this encounter
--- OUTSIDE RECORDS SUMMARY | 2025-07-30 15:04 | XMS_ITS | Clinical Summary ---
Author Organization [facility] Address [address] [id number] Care Team Providers Care Conservation Agent Name Role Phone Bernard Todd MD Primary Care Provider [phone] Allergies Active Allergy Reactions Criticality Noted Date Comments Latex Unknown - Low Severity 06/06/2023 Medications gabapentin (NEURONTIN) 800 MG tablet Take 1 tablet by mouth 4 (Four) Times a Day. Active sertraline (ZOLOFT) 100 MG tablet Take 1 tablet by mouth Daily. Active DULoxetine (CYMBALTA) 60 MG capsule Take 1 capsule by mouth Daily. Active isosorbide dinitrate (ISORDIL) 30 MG tablet Take 1 tablet by mouth 1 (One) Time. Active atorvastatin (LIPITOR) 80 MG tablet Take 1 tablet by mouth Every Night. Active aspirin 81 MG EC tablet Take 1 tablet by mouth Daily. Active lactobacillus (BACID) tablet caplet Take 1 tablet by mouth 2 (Two) Times a Day. Active metoprolol tartrate (LOPRESSOR) 25 MG tablet Take 1 tablet by mouth 2 (Two) Times a Day. Active insulin glargine (LANTUS, SEMGLEE) 100 UNIT/ML injection Inject 75 Units under the skin into the appropriate area as directed Every Night. Active Insulin Aspart (novoLOG) 100 UNIT/ML injection Inject 15 Units under the skin into the appropriate area as directed 3 (Three) Times a Day Before Meals. Active Semaglutide (OZEMPIC, 1 MG/DOSE, SC) Inject 1 mg under the skin into the appropriate area as directed 1 (One) Time Per Week. Active Active Problems Problem Noted Date Diagnosed Date Acute osteomyelitis 06/06/2023 Social History Tobacco Use Types Packs/Day Years Used Date Smoking Tobacco: Never Assessed Abuse Screen Answer Date Recorded Unsafe at Home or Work/School Not on file 10 /04/2023 Feels Threatened by Someone? Not on file 04/2023 Does Anyone Keep You from Co ntacting Others or Doint Things Outside the Home? Not on file 07/14/2023 Physical Sign of Abuse Present Not on file 1 Housing Stability Answer Date Recorded Current Living Arrangements Not on file 04/2023 Potentially Unsafe Housing Conditions Not on sonja e 07/14/2023 Family and Community Support Answer Richar e Recorded Help with Day-to-Day Activities Not on file 07/14/2023 Lonely or Isolated Not on file 07/14/2023 Employment Answer Date Recorded Do you want help finding or keeping work or a bobo b? Not on file 07/14/2023 Disabilities Answer Date Recorded Concentrating, Remembering, or Making Decisions Difficulty Not on file 07/14/2023 Doing Errands Independently Difficulty Not on fi le 07/14/2023 Education Answer Date Recorded Help with school or training? Not on file Preferred Language Not on file 07/14/2023 Comments Unknown Sex and Gender Information Value Date Recorded Sex Assigned at Not on file Legal Sex Female 9:55 AM EDT Gender Identity Not on file Sexual Orientation Not on file Last Filed Vital Signs Vital Sign Reading Time Taken Comments Blood Pressure 124/62 06/20/2023 1:57 PM EDT Pulse 94 06/20/2023 1:57 PM EDT Temperature 36.6 C (97.8 F) 06/20/2023 1:57 PM EDT Respiratory Rate 18 06/20/2023 1:57 PM EDT Oxygen Saturation - - Inhaled Oxygen Concentration - - Weight 77.6 kg (171 lb) 06/20/2023 1:57 PM EDT Height 157.5 cm (5' 2 ) 06/20/2023 1:57 PM EDT Body Mass Index 31.28 06/20/2023 1:57 PM EDT Plan of Treatment Health Maintenance Due Date Last Done Comments ANNUAL PHYSICAL 1962 Annual Gynecologic Pelvic an d Breast Exam 1962 HEPATITIS C SCREENING 1962 TDAP/TD VACCINES (1 - Tdap) 1981 MAMMOGRAM 2002 COLOGUARD 2007 COLON CANCER SCREENING 5 YEA R SIGMOIDOSCOPY 2007 COLONOSCOPY 2007 COL[address]ECTAL CANCER SCREENING 2007 CT COLONOGRAPHY 2007 FECAL OCCULT BLOOD TEST 2007 FIT Testing (1 year) 2007 Pneumococcal Vaccine 50+ (1 of 1 - PCV) 2012 ZOSTER VACCINE (1 of 2) 2012 INFLUENZA VACCINE 05/08/2025 07/27/2020 HEMOGLOBIN A1C Discontinued 01/03/2023, 12/07, 09/15/2022, Additional history exists Insurance Care Teams Conservation Agent Relationship Specialty Start Date End Date Bernard Todd MD [address] [facility] [address] [place] [id number] PCP - General Adolescent Medicine 06/13/23
--- OUTSIDE RECORDS SUMMARY | 2025-07-30 15:04 | XMS_ITS | Referral Summary ---
Author Organization [employer] ([place], [place], [place], [place]) Address [address] [place] [address] Care Team Providers Care Tax Economist Name Role Phone Unavailable Primary Care Provider [...] hyperglycemia, with long-term current use of insulin ([facility]) Inject 0.375 mLs (0.5 mg total) subcutaneously once a week. 1.5 mL 2 04/18/20 24 Active blood-glucose sensor (DEXCOM G7) DeviIndications:Ty pe 2 diabetes mellitus with hyperglycemia, with long-term current use of insulin ([facility]) Change sensor every 10 days.. 3 each 3 04/18/20 24 Active blood-glucose meter,continuous (DEXCOM G7) MiscIndications:Ty pe 2 diabetes mellitus with hyperglycemia, with long-term current use of insulin ([facility]) Check blood glucose daily.. 1 each 04/18/20 24 Active atorvastatin (LIPITOR) 80 MG tabletIndications: Mixed hyperlipidemia Take 1 tablet (80 mg total) by mouth daily. 90 tablet 1 04/19/20 24 Active insulin glargine (Lantus Solostar U-100 Insulin) 100 unit/mL (3 mL) InPnIndications:Ty pe 2 diabetes mellitus with hyperglycemia, with long-term current use of insulin ([facility]) Inject 63 Units subcutaneously nightly. 75 mL [...] Dates Next Due Covid-19 Vaccine MRNA(PF,Pre mixed)12YR+ ([employer])([id number]) 11/12/2021 Influenza Four-qiv Pf 07/27/2020 Social History [...] Date Yo rded Speak language other than Paraguayan at home Not on file 10/27/2023 Want [...] 04/18/2024 1:22 PM EDT Plan of Treatment Not on file Medical Devices Implanted Type Area Equity Trader Device Identifier Shelf Expiration Date Model / Serial / Lot Graft Skin Betzaida 3.0x3.5 [id number] - [id number] Implanted:Qty: 1 on 05/26/2023 by Anselmo Ronquillo DPM at [facility] IMPLANTS Right: Foot [employer] 01/15/2025 [id number] / / [id number] Procedures Procedure Name Priority Date/Time Associated [...] (ABNORMAL) Lipid panel (04/18/2024 3:16 PM EDT) Cholesterol, Total 204(H) 100 - 199 mg/dL [facility] Triglycerides 153(H) 0 - 149 mg/dL [facility] HDL Cholesterol 63 >39 mg/dL [facility] VLDL Cholesterol Gonzalo 27 5 - 40 mg/dL [facility] LDL Calculated 114(H) 0 - 99 mg/dL [facility] Blood 04/18/2024 3:16 PM EDT 04/18/2024 Narrative [facility] - 04/19/2024 7:07 AM EDT Performed at: - [address] [id number] Garment Turner: Reji Mcgraw PhD, Phone: [phone] Thania Jaquez APRN LAB BLOOD ORDERABLES Final Result [facility] * POCT glycated hemoglobin, total (A1C) (04/18/2024 1:46 PM EDT) Hemoglobin A1C 9.8 % 04/18/2024 1:46 PM EDT Thania Jaquez PICTURE ENGRAVER POINT OF CARE TEST ORDERAB LES Final Result * Hepatitis panel, acute (05/25/2023 7:54 AM EDT) Hep A IgM Nonreactive Nonreactive, Equivocal 05/25/2023 9:32 AM EDT [facility] Hep B C IgM Nonreactive Nonreactive 05/25/2023 9:32 AM EDT [facility] Hepatitis B surface antigen Nonreactive Nonreactive, Equivocal 05/25/2023 9:32 AM EDT [facility] Hepatitis C Ab Nonreactive Nonreactive, Equivocal 05/25/2023 9:32 AM EDT [facility] Blood Venipuncture / Unknown 05/25/2023 7:54 AM EDT 05/25/2023 8:08 AM EDT Narrative [facility] - 05/25/2023 9:32 AM EDT Hepatitis [...] related to biotin interference with lab tests. us Joshua Castro DO LAB BLOOD ORDERABLES Final Re sult [facility] [address] [phone] from Last 3 Months or Most Recently Relevant to Health Maintenance Advance Directives For more information, please contact: [phone] * Full Code (Latest Code Status on File) Date Activated Date Inactivated Comments 05/23/2023 1:04 PM 05/30/2023 6:01 PM
== END 2025-07-30 23:59 | disposition home or self-care (01) ==
LOC: RAD 14:28
PROVIDERS: PCP Internal Medicine Adolescent Medicine; Visit Provider Nurse Practitioner Family
DX: Z12.31 Encounter for screening mammogram for malignant neoplasm of breast (principal); R92.323 Mammographic fibroglandular density, bilateral breasts; Z12.2 Encounter for screening for malignant neoplasm of respiratory organs; Z87.891 Personal history of nicotine dependence; Z95.1 Presence of aortocoronary bypass graft; Z87.09 Personal history of other diseases of the respiratory system
CPT/HCPCS: 71271; 77063; 77067